=== PATIENT | female | born 1980 | race Caucasian/White ===

== ENCOUNTER 2020-09-23 12:42 | Outpatient (REF) | payer MEDICAID, SELFPAY ==
[2020-09-23 17:48] LABS: Glucose Urine UA NEG (NEG); Leukocyte Esterase Urine NEG (NEG); Nitrite Urine NEG (NEG); PH 5.5 (5.0-8.0); Specific Gravity - Urine 1.025 (1.005-1.025); Urine Blood 2+ (NEG); Urine Ketones NEG (NEG); Urine Protein NEG (NEG-TRACE)
[2020-09-23 17:50] LABS: Appearance Urine HAZY; Color Urine YELLOW
[2020-09-23 18:05] LABS: Bacteria Urine 1+ /LPF; Mucus Urine TRACE /LPF; Squamous Epithelial Cell Urine TRACE /LPF; WBC Urine 0 /HPF (0-4)
[2020-09-24 09:17] LABS: BV Int Neg Control Negative (Negative); BV Int Pos Control Positive (Positive)
[2020-09-27 20:21] LABS: HPV mRNA E6/E7 rflx Not Detected (Not Detected)
== END 2020-09-23 12:43 | disposition home or self-care (01) ==
LOC: HO.LAB 12:42
PROVIDERS: Visit Provider Advanced Practice Midwife
DX: Z01.419 Encounter for gynecological examination (general) (routine) without abnormal findings (principal); Z11.51 Encounter for screening for human papillomavirus (HPV); Z11.3 Encounter for screening for infections with a predominantly sexual mode of transmission; N92.6 Irregular menstruation, unspecified; R23.2 Flushing; N84.1 Polyp of cervix uteri; N93.9 Abnormal uterine and vaginal bleeding, unspecified
CPT/HCPCS: 81001; 81003; 87480; 87491; 87510; 87591; 87624; 87660; 88142

== ENCOUNTER 2020-09-28 12:38 | Outpatient (REF) | payer MEDICAID, SELFPAY ==
--- NOTE | ~2020-09-28 | US_ITS ---
EXAMINATION: PELVIC ULTRASOUND CLINICAL INFORMATION: Irregular menses COMPARISON: Previous CT of the abdomen and pelvis March 2015 TECHNIQUE: Transabdominal and transvaginal pelvic ultrasound was performed. Transvaginal exam was performed for better visualization of the uterus and ovaries. FINDINGS: The uterus is anteverted and measures 7.8 x 4.9 x 5.8 m in dimension. No focal uterine lesion is seen. Endometrial thickness is upper normal in size measuring 1.4 cm. No focal uterine lesion is seen. There is a small nabothian cyst in the cervix. The ovaries are normal-appearing. The right ovary measures 3 x 1.5 x 1.8 cm and the left ovary measures 3.6 x 1.6 x 3.6 cm. There is a small amount of fluid in the pelvis. US/US pelvic and transvaginal IMPRESSION: Upper normal thickness endometrium. Otherwise unremarkable exam.
[2020-09-28 13:53] LABS: Hematocrit 37.9 % (37-47); Hemoglobin 12.2 g/dl (12.0-16.0); Mean Corpuscular HGB Conc 32.2 g/dl (31.0-35.0); Mean Corpuscular Hemoglobin 28.7 pg (27.0-33.0); Mean Corpuscular Volume 89.2 fL (80-98); Mean Platelet Volume 9.5 fL (9.4-12.3); Platelet Count 318 X10*3/uL (160-400); Red Blood Count 4.25 X10*6/uL (4.20-5.50); Red Cell Distribution Width 12.8 % (11.0-16.0); White Blood Count 7.9 X10*3/uL (4.8-10.8)
[2020-09-28 14:24] LABS: Glucose Urine UA NEG (NEG); Leukocyte Esterase Urine NEG (NEG); Nitrite Urine NEG (NEG); PH 5.5 (5.0-8.0); Specific Gravity - Urine <= 1.005 (1.005-1.025); Urine Blood NEG (NEG); Urine Ketones NEG (NEG); Urine Protein NEG (NEG-TRACE)
[2020-09-28 14:25] LABS: Appearance Urine CLEAR; Color Urine YELLOW
[2020-09-28 14:40] LABS: Thyroid Stimulating Hormone 0.56 uIU/mL (0.32-4.0)
== END 2020-09-28 12:39 | disposition home or self-care (01) ==
LOC: HO.HMGCX 12:38
PROVIDERS: PCP Hospitalist; Visit Provider Advanced Practice Midwife
DX: N92.1 Excessive and frequent menstruation with irregular cycle (principal); N89.8 Other specified noninflammatory disorders of vagina; N93.9 Abnormal uterine and vaginal bleeding, unspecified
CPT/HCPCS: 36415; 76830; 76856; 81003; 84443; 85027

== ENCOUNTER 2020-09-30 09:52 | Outpatient (REF) | payer MEDICAID, SELFPAY | END 2020-09-30 09:53 | disposition home or self-care (01) | LOC: HO.LAB 09:52 | PROVIDERS: PCP Hospitalist; Referring Provider Hospitalist; Visit Provider Advanced Practice Midwife | DX: N84.1 Polyp of cervix uteri (principal); N93.9 Abnormal uterine and vaginal bleeding, unspecified | CPT/HCPCS: 58100; 58558; 88305 ==

== ENCOUNTER → 2020-10-13 15:00 | Outpatient (BNVA) | payer MEDICAID, SELFPAY | PROVIDERS: PCP Hospitalist; Visit Provider Advanced Practice Midwife ==

== ENCOUNTER 2021-02-23 09:39 | Outpatient (REF) | payer MEDICAID, SELFPAY ==
[2021-02-24 08:39] LABS: BV Int Neg Control Negative (Negative); BV Int Pos Control Positive (Positive)
[2021-02-26 13:41] LABS: HPV mRNA E6/E7 rflx Not Detected (Not Detected)
== END 2021-02-23 09:40 | disposition home or self-care (01) ==
LOC: HO.LAB 09:39
PROVIDERS: PCP Hospitalist; Visit Provider Advanced Practice Midwife
DX: R87.615 Unsatisfactory cytologic smear of cervix (principal); N93.9 Abnormal uterine and vaginal bleeding, unspecified; N89.8 Other specified noninflammatory disorders of vagina
CPT/HCPCS: 87480; 87510; 87624; 87660; 88142; 99212

== ENCOUNTER 2023-05-01 13:30 | Outpatient (AMB) | payer OTHER, SELFPAY ==
--- NOTE | 2023-05-01 13:50 | A.OFFVIS_ITS ---
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: Curator Of Collections Present (Adelia) Allergies azithromycin [From ZITHROMAX] Allergy (Intermediate, Verified 05/01/23 13:51) STOMACH PAIN, dizziness, abd pain amoxicillin Allergy (Unknown, Verified 05/01/23 13:51) dizziness, abd pain Sulfa (Sulfonamide Antibiotics) Allergy (Unknown, Verified 05/01/23 13:51) dizziness, abd pain sulfamethoxazole [From BACTRIM] Adverse Reaction (Intermediate, Verified 05/01/23 13:51) STOMACH PAIN trimethoprim [From BACTRIM] Adverse Reaction (Intermediate, Verified 05/01/23 13:51) STOMACH PAIN Is last menstrual period known: Yes Last menstrual period: 04/21/23 HPI HPI Comments History of Present Illness Details She is a premenopausal woman presenting for annual examination. Doing well with concerns: Having hot flashes at times, not interrupting sleep. Reports some mood changes. She tries to eat healthy and stays active with exercise. Regular monthly menses x4d. Currently is sexually active. History of vasectomy for partner. She denies vaginal itching and irritation. STI screening offered; she declined. Denies family history of breast, ovarian or colon cancer. Last pap smear 2020, negative. History of LEEP Pap due in 2023. Mammogram: Up-to-date. [facility] Medical History (Updated 05/01/23 @ 14:33 by Saritha Jain CNM) History of abnormal cervical Pap smear Surgical History H/O tooth extraction Hx of appendectomy History of colposcopy History of loop electrical excision procedure (LEEP) Hx of cone biopsy of cervix Hx of tonsillectomy Family History Maternal Grandmother Breast cancer Mother Cervical cancer Father No problems noted. Social History Alcohol intake: never Gender identity: Female Female Reproductive History Menstrual Age of Menarche: 11 Duration of menses: 3-5 days Date of last menstrual period: 04/21/23 control method: other (Vasectomy) Total pregnancies: 2 Full term: 2 Number of Living Children: 2 Date of last pap smear: 02/23/21 (neg pap and hpv) History of abnormal pap smear: Yes (hx hpv 10+yrs ago per pt) Date of Mammogram: 08/14/22 (Birad 1) Review of Systems Const All systems reviewed & are unremarkable except as noted in HPI and below Reports as per HPI Eyes Reports no additional complaints ENT Reports no additional complaints Card Reports no additional complaints Resp Reports no additional complaints GI Reports as per HPI and Reports no additional complaints Reports as per HPI Musc Reports no additional complaints Skin/Breast Reports as per HPI Neuro Reports no additional complaints Psych Reports no additional complaints Endo Reports no additional complaints Himanshu/Lymph Reports no additional complaints Aller/Immun Reports no additional complaints Physical Exam Vital Signs: Last Vital Signs BP 98/66 05/01/23 13:51 BMI result Body Mass Index 33.6 Const General: cooperative, healthy appearing, no acute distress, well developed and alert Orientation/consciousness: patient oriented x3 HEENT Head: Yes normal to inspection Eyes General: appearance normal, both eyes and all related structures Neck Neck: Yes normal visual inspection Thyroid: Thyroid normal Chest Chest palpation & inspection: normal inspection of the chest and other (no puckering, dimpling, peau de orange, retraction, discharge, masses) Breast/axilla inspection: normal inspection of the breasts Breast/axilla palpation: normal palpation of the breasts Resp Effort & Inspection: normal respiratory effort GI Inspection: Yes normal to inspection Palpation (GI): Soft to palpation Rectal Exam - Female: deferred General: Yes bladder normal to palpation External Female Exam: normal external appearance and normal appearance of the urethra Speculum Exam - Vagina: normal appearance of the vagina, normal palpation and normal vaginal discharge Speculum Exam - Cervix: normal appearance of the cervix and normal palpation Bimanual exam- vagina & uterus: normal bimanual exam, normal palpation, uterine size normal, bladder normal to palpation, normal palpation and non-tender Bimanual Exam- Adnexa, other: no masses Skin General skin exam: no rashes or lesions noted Rashes: no rashes Neuro General: patient oriented x3 Cognition (Neuro): normal cognition Extrem General: Yes normal to inspection Psych Attitude: cooperative Thought process: Normal thought process present Assessment & Plan Assessment & Plan (1) Encounter for well woman exam with routine gynecological exam: Code(s): Z01.419 - Encounter for gynecological examination (general) (routine) without abnormal findings (2) Polyp at cervical os: Code(s): N84.1 - Polyp of cervix uteri Plan Discussed: Current recommendations for pap smears per ASCCP guidelines. Breast awareness and periodic breast exams. Maintain a healthy lifestyle including a well balanced diet and routine exercise. Counseled re: perimenopause verses menopause changes. Monitor menstrual cycles, report any unscheduled bleeding, bleeding episodes <21 days apart or heavy/prolonged menstrual bleeding. Menopause occurs after a full 12 months of absent menses. If at risk for , use condoms, and if menses is late, take a home test. Call the office for further evaluation for any abnormal bleeding pattern occurs. Mammogram yearly. Patient requested external requisition to have this completed at [facility]. Colonoscopy >45, or at risk sooner. All of her questions and concerns were addressed to the best of my ability. RTO in one year for annual back padder examination. This note is constructed using voice recognition software. While every effort has been made to ensure accuracy, radiology scheduler errors may have been included. Orders: Orders MM tomosynthesis screening BI Today Z12.31 - Encounter for screening mammogram for malignant neoplasm of breast Coding Level of Care Code Est Pt Prev Care 40-64y(60706) Diagnoses Encounter for well woman exam with routine gynecological exam Z01.419 Polyp at cervical os N84.1
[2023-05-01 13:51] VITALS: BP 98/66; BMI 33.6
== END 2023-05-01 15:44 | disposition home or self-care (01) ==
PROVIDERS: PCP Hospitalist; Visit Provider Advanced Practice Midwife
DX: Z01.419 Encounter for gynecological examination (general) (routine) without abnormal findings (principal); N84.1 Polyp of cervix uteri
CPT/HCPCS: 99396

== ENCOUNTER → 2023-05-01 13:30 | Outpatient (BNVA) | payer OTHER, SELFPAY | PROVIDERS: PCP Hospitalist; Visit Provider Advanced Practice Midwife | DX: Z01.419 Encounter for gynecological examination (general) (routine) without abnormal findings (principal); N84.1 Polyp of cervix uteri | CPT/HCPCS: 99396 ==

== ENCOUNTER 2023-05-04 13:06 | Emergency (ER) | payer OTHER, SELFPAY ==
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
[2023-05-04 13:28] VITALS: BP 140/96; PULSE 81; O2SAT 99; BMI 33.5
[2023-05-04 13:32] VITALS: BP 137/89; PULSE 83; RESP 16; TEMP 36.8; O2SAT 99
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
--- NOTE | 2023-05-04 14:18 | PC.NURSE ---
pt c/o 5/10 pain at this time but does not want medication. c-collar remains in place. pt awaiting results from CT at this time. family bedside. respirations remain even/unlabored.
== END 2023-05-04 15:26 | disposition home or self-care (01) ==
PROVIDERS: Emergency Provider Emergency Medicine Emergency Medical Services; PCP Nurse Practitioner Family
DX: S13.4XXA Sprain of ligaments of cervical spine, initial encounter (principal); R51.9 Headache, unspecified; M54.2 Cervicalgia; V43.52XA Car driver injured in collision with other type car in traffic accident, initial encounter; Y93.9 Activity, unspecified; Y92.410 Unspecified street and highway as the place of occurrence of the external cause; Y99.9 Unspecified external cause status
CPT/HCPCS: 70450; 72125; 99284

== ENCOUNTER 2023-07-20 13:40 | Outpatient (REF) | payer MEDICAID, SELFPAY | END 2023-07-20 13:41 | disposition home or self-care (01) | LOC: HO.LNP 13:40 | PROVIDERS: PCP Nurse Practitioner Family; Visit Provider Advanced Practice Midwife | DX: N84.1 Polyp of cervix uteri (principal); Z32.02 Encounter for pregnancy test, result negative | CPT/HCPCS: 57500; 81025; 88305 ==

== ENCOUNTER 2023-07-20 13:40 | Outpatient (AMB) | payer MEDICAID, SELFPAY ==
--- NOTE | 2023-07-20 13:45 | A.OFFVIS_ITS ---
Intake Vital Signs 07/20/23 14:01 Height 5 ft 4 in Weight 194 lb 0.108 oz BMI 33.3 BP 108/62 Intake Visit Reasons: polypectomy [employer] Attendant Required: No Information Interpreted: non-clinical & clinical Rn Chemical Dependency: Rn Chemical Dependency Present (Jayne WADSWORTH) Accompanied by: Self / Same As Patient Allergies azithromycin [From ZITHROMAX] Allergy (Intermediate, Verified 07/20/23 14:02) STOMACH PAIN, dizziness, abd pain amoxicillin Allergy (Unknown, Verified 07/20/23 14:02) dizziness, abd pain Sulfa (Sulfonamide Antibiotics) Allergy (Unknown, Verified 07/20/23 14:02) dizziness, abd pain sulfamethoxazole [From BACTRIM] Adverse Reaction (Intermediate, Verified 07/20/23 14:02) STOMACH PAIN trimethoprim [From BACTRIM] Adverse Reaction (Intermediate, Verified 07/20/23 14:02) STOMACH PAIN Is last menstrual period known: Yes Last menstrual period: 07/07/23 PFSH Medical History History of abnormal cervical Pap smear Surgical History H/O tooth extraction Hx of appendectomy History of colposcopy History of loop electrical excision procedure (LEEP) Hx of cone biopsy of cervix Hx of tonsillectomy Family History Maternal Grandmother Breast cancer Mother Cervical cancer Father No problems noted. Social History Alcohol intake: never Gender identity: Female Female Reproductive History Menstrual Age of Menarche: 11 Date of last menstrual period: 07/07/23 Review of Systems Const All systems reviewed & are unremarkable except as noted in HPI and below Physical Exam Vital Signs: Last Vital Signs BP 108/62 07/20/23 14:01 BMI result Body Mass Index 33.3 Const General: cooperative, healthy appearing and no acute distress Orientation/consciousness: patient oriented x3 GI Inspection: Yes normal to inspection Palpation (GI): Soft to palpation and Other GI palpation findings present (Nontender) Rectal Exam - Female: visual inspection normal External Female Exam: normal appearance of the urethra Speculum Exam - Vagina: normal appearance of the vagina and normal vaginal disch arge Speculum Exam - Cervix: normal appearance of the cervix and Cervical mass present (Polyp lesion at 06:00 o'clock) Neuro General: patient oriented x3 Office Procedures Cervical Polypectomy Details Details: Consent for Cervical Polypectomy procedure: The patient is here today for an Cervical Polypectomy. She was counseled regarding anticipatory guidance for the procedure including the risks for pain, infection, bleeding, perforation, potential injury to the tissues may include the cervix, vagina, uterus, tubes, bladder and bowels. These injuries may include further treatment and evaluation including surgery, blood transfusions, antibiotics, hospitalizations and anesthesia. Permanent injury and scarring can occur. She was consented for the procedure, and the consent forms were signed. She is agreeable to have the procedure today. All questions were answered. Polypectomy Procedure: The patient was placed in the dorsal lithotomy position and a sterile speculum inserted. Using aseptic technique for the procedure. The cervix was cleansed with Betadine x 3 swabs. The polyp was grasped with a Manjit and removed. The tissue sample was placed in formalin in a patient labeled container by staff assisting and sent to the pathology department for processing and interpretation. Minimal bleeding was observed.The patient tolerate the procedure well and was in good condition when leaving the department. Post Polypectomy Care: There may be some bleeding for several days that is usually light and can turn to a light brown or pink in color. Mild cramping may occur. Nothing in the vagina including: tampons, douching or intimacy for a week. You may take an over the counter mild analgesia like Tylenol or Advil (if no allergies), per the manufacturers recommendations on dosing and frequency. Fol low the directions completely. Call the office if any: fever (over 100.4), flu like symptoms, abdominal pain, worsening cramping not resolved with over the counter medications, foul smelling vaginal odor, signs of infected appearing discharge, or heavy bleeding. A follow up for results on the pathology will be made. Please call the office if you have any concerns. This note is constructed using voice recognition software. While every effort has been made to ensure accuracy, hairpiece stylist errors may have been included. CPT: 28774 - Cervical Polypectomy All charges added?: Procedure code (CPT) selection complete Results AMB Test Urine AMB Test Urine Negative Last Edit by Jayne Cheung CMA on 03/08/ 24 14:21 Results Reviewed Results Reviewed: Laboratory Last Values Tst Clinic Negative 07/20/23 14:21 Assessment & Plan Assessment & Plan (1) Cervical polyp: Code(s): N84.1 - Polyp of cervix uteri Plan: See procedure notes. Plan to call patient with test results when available. Orders: Orders Surgical Today N84.1 - Polyp of cervix uteri AMB HCG Urine Test Today Z32.02 - Encounter for test, result negative Coding Level of Care Code Procedure Only Diagnoses Cervical polyp N84.1 CPT Codes Details - CPT: 11696 - Cervical Polypectomy ([id number])
[2023-07-20 14:01] VITALS: BP 108/62; BMI 33.3
== END 2023-07-20 15:58 | disposition home or self-care (01) ==
PROVIDERS: PCP Nurse Practitioner Family; Visit Provider Advanced Practice Midwife
DX: N84.1 Polyp of cervix uteri (principal); Z32.02 Encounter for pregnancy test, result negative
CPT/HCPCS: 57500

== ENCOUNTER 2024-05-28 13:48 | Outpatient (REF) | payer OTHER, SELFPAY ==
[2024-05-29 10:51] LABS: HPV 16,18/45 See PAP report
== END 2024-05-28 13:49 | disposition home or self-care (01) ==
LOC: HO.LNP 13:48
PROVIDERS: PCP Nurse Practitioner Family; Visit Provider Advanced Practice Midwife
DX: Z01.419 Encounter for gynecological examination (general) (routine) without abnormal findings (principal); Z11.51 Encounter for screening for human papillomavirus (HPV)
CPT/HCPCS: 87626; 88175; 99396; 99459

== ENCOUNTER 2024-05-28 13:48 | Outpatient (AMB) | payer OTHER, SELFPAY ==
--- NOTE | 2024-05-28 13:55 | A.OFFVIS_ITS ---
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 Metal Expediter: Metal Expediter Present (Adelia) Accompanied by: Self / Same As Patient Allergies azithromycin [From ZITHROMAX] Allergy (Intermediate, Verified 05/28/24 14:01) STOMACH PAIN, dizziness, abd pain amoxicillin Allergy (Unknown, Verified 05/28/24 14:01) dizziness, abd pain Sulfa (Sulfonamide Antibiotics) Allergy (Unknown, Verified 05/28/24 14:01) dizziness, abd pain sulfamethoxazole [From BACTRIM] Adverse Reaction (Intermediate, Verified 05/28/24 14:01) STOMACH PAIN trimethoprim [From BACTRIM] Adverse Reaction (Intermediate, Verified 05/28/24 14:01) STOMACH PAIN HPI Comments Details: She is a premenopausal woman presenting for annual examination. 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 CT scan at [facility] due to abd. pain. was negative. Regular monthly menses. Currently is sexually active, same partner for years, history of vasectomy. She denies vaginal itching and irritation. STI screening offered; she accepts. She has a GI workup pending. She tries to eat healthy and stays active with exercise-walks all day. Denies family history of breast, ovarian or colon cancer. Last pap smear 2020, negative. Mammogram: at [facility]-no copy on hand. [facility] Medical History History of abnormal cervical Pap smear Surgical History H/O tooth extraction Hx of appendectomy History of colposcopy History of loop electrical excision procedure (LEEP) Hx of cone biopsy of cervix Hx of tonsillectomy Family History Maternal Grandmother Breast cancer Mother Cervical cancer Father No problems noted. Social History Alcohol intake: never Gender identity: Female Female Reproductive History Menstrual Age of Menarche: 11 Duration of menses: 3-5 days Date of last menstrual period: 05/18/24 control method: other (vasectomy) Total pregnancies: 2 Full term: 2 Number of Living Children: 2 Date of last pap smear: 02/23/21 (negative pap, negative hpv) History of abnormal pap smear: Yes (hx hpv 10+yrs ago per pt) Date of Mammogram: 08/14/22 (bi rad 1) Review of Systems Const All systems reviewed & are unremarkable except as noted in HPI and below Reports as per HPI Eyes Reports no additional complaints ENT Reports no additional complaints Card Reports no additional complaints Resp Reports no additional complaints GI Reports as per HPI and Reports no additional complaints Reports as per HPI Musc Reports no additional complaints Skin/Breast Reports as per HPI Neuro Reports no additional complaints Psych Reports no additional complaints Endo Reports no additional complaints Himanshu/Lymph Reports no additional complaints Aller/Immun Reports no additional complaints Physical Exam Vital Signs: Last Vital Signs BP 110/70 05/28/24 14:03 BMI result Body Mass Index 32.8 Const General: cooperative, healthy appearing, no acute distress, well developed and alert Orientation/consciousness: patient oriented x3 HEENT Head: Yes normal to inspection Eyes General: appearance normal, both eyes and all related structures Neck Neck: Yes normal visual inspection Thyroid: Thyroid normal Chest Other: Large pendulous Chest palpation & inspection: normal inspection of the chest and other (no puckering, dimpling, peau de orange, retraction, discharge, masses) Breast/axilla inspection: normal inspection of the breasts Breast/axilla palpation: normal palpation of the breasts Resp Effort & Inspection: normal respiratory effort GI Inspection: Yes normal to inspection Palpation (GI): Soft to palpation Rectal Exam - Female: deferred General: Yes bladder normal to palpation External Female Exam: normal external appearance and normal appearance of the urethra Speculum Exam - Vagina: normal appearance of the vagina, normal palpation and normal vaginal discharge Speculum Exam - Cervix: normal appearance of the cervix, normal palpation and Other cervical findings present (Post LEEP appearance) Bimanual exam- vagina & uterus: normal bimanual exam, normal palpation, uterine size normal, bladder normal to palpation, normal palpation and non-tender Bimanual Exam- Adnexa, other: no masses Skin General skin exam: no rashes or lesions noted Rashes: no rashes Neuro General: patient oriented x3 Cognition (Neuro): normal cognition Extrem General: Yes normal to inspection Psych Attitude: cooperative Thought process: Normal thought process present Assessment & Plan Assessment & Plan (1) Encounter for well woman exam with routine gynecological exam: Code(s): Z01.419 - Encounter for gynecological examination (general) (routine) without abnormal findings Category: Medical (2) Pain in pelvis: Code(s): R10.2 - Pelvic and perineal pain Plan Discussed: Current recommendations for pap smears per ASCCP guidelines. Breast awareness and periodic breast exams. Mammogram yearly, send copies from [facility]. Pelvic ultrasound, GC chlamydia and BV panel obtained. Follow up pending results okay to plan a tele visit. Reviewed causes of pelvic pain and other rule out including GI origin, endometriosis, ovarian cyst, infections, other. Maintain a healthy lifestyle including a well balanced diet and routine exercise. Colonoscopy >45, or at risk sooner. Patient verbalizes understanding and agrees to the plan of care. She was given opportunity to ask questions and all questions were answered to the best of my ability. RTO in one year for annual senior sous chef examination. This note is constructed using voice recognition software. While every effort has been made to ensure accuracy, fashion photographer errors may have been included. Orders: Orders US pelvic and transvaginal Today R10.2 - Pelvic and perineal pain Coding Level of Care Code Est Pt Prev Care 40-64y(47802) Diagnoses Encounter for well woman exam with routine gynecological exam Z01.419 Pain in pelvis R10.2
[2024-05-28 14:03] VITALS: BP 110/70; BMI 32.8
== END 2024-05-28 15:00 | disposition home or self-care (01) ==
LOC: HO.HWS 13:48
PROVIDERS: PCP Nurse Practitioner Family; Visit Provider Advanced Practice Midwife
DX: Z01.419 Encounter for gynecological examination (general) (routine) without abnormal findings (principal); R10.2 Pelvic and perineal pain
CPT/HCPCS: 99396; 99459

== ENCOUNTER 2024-05-28 14:41 | Outpatient (REF) | payer OTHER, SELFPAY ==
[2024-05-28 21:31] LABS: Bacterial Vaginosis PCR NEGATIVE (Negative); Candida Group PCR NOT DETECTED (Not Detect); Candida glab krusei PCR NOT DETECTED (Not Detect); Trichomonas vaginalis PCR NOT DETECTED (Not Detect)
[2024-05-28 21:54] LABS: CT PCR NOT DETECTED (Not Detect.); NG PCR NOT DETECTED (Not Detect.)
== END 2024-05-28 14:42 | disposition home or self-care (01) ==
LOC: HO.LAB 14:41
PROVIDERS: Visit Provider Advanced Practice Midwife
DX: R10.2 Pelvic and perineal pain (principal); Z11.3 Encounter for screening for infections with a predominantly sexual mode of transmission
CPT/HCPCS: 81515; 87491; 87591

== ENCOUNTER 2024-06-05 15:13 | Outpatient (REF) | payer OTHER, SELFPAY ==
--- NOTE | ~2024-06-05 | US_ITS ---
EXAMINATION: US PELVIS TRANSABDOMINAL AND TRANSVAGINAL HISTORY: R10.2 - Pelvic and perineal pain COMPARISON: Comparison is made with the prior examination dated 09/28/2020. TECHNIQUE: Transabdominal and endovaginal real-time 2D cardona-scale ultrasound was performed. Color Doppler was also performed. FINDINGS: Uterus: The uterus is normal in size, measuring 8.2 x 4.0 x 4.8 cm. Myometrium has a normal echotexture. There is an anterior uterine fibroid measuring 1.4 x 1.0 x 1.0 cm. Endometrium: The endometrial stripe measures 4 mm in thickness. Right ovary: The right ovary measures 3.0 x 1.9 x 1.8 cm. The right ovary is normal in size and echotexture. Left ovary: The left ovary measures 2.3 x 1.5 x 1.6 cm. The left ovary is normal in size and echotexture. There is a 3.4 x 3.5 x 3.6 cm cyst adjacent to the left ovary, compatible with a paraovarian cyst. Color Doppler analysis of the bilateral ovarian arteries and veins are normal. Pelvic fluid: none. US/US pelvic and transvaginal IMPRESSION: 1. 1.4 x 1.0 x 1.0 cm anterior uterine fibroid. 2. 3.5 x 3.5 x 3.6 cm left paraovarian cyst. Follow-up is recommended. Electronically signed by: Victor M Beahc MD 06/06/2024 07:20 AM [facility]
== END 2024-06-05 15:14 | disposition home or self-care (01) ==
LOC: HO.US 15:13
PROVIDERS: PCP Nurse Practitioner Family; Visit Provider Advanced Practice Midwife
DX: R10.2 Pelvic and perineal pain (principal)
CPT/HCPCS: 76830; 76856

== ENCOUNTER → 2024-06-05 15:16 | Outpatient (BNV) | payer OTHER, SELFPAY | PROVIDERS: PCP Nurse Practitioner Family; Visit Provider Radiology Diagnostic Radiology | DX: D25.9 Leiomyoma of uterus, unspecified (principal) | CPT/HCPCS: 76830; 76856 ==

== ENCOUNTER → 2024-06-19 11:43 | Outpatient (AMB) | payer OTHER, SELFPAY ==
--- NOTE | 2024-06-19 11:43 | A.OFFVIS_ITS ---
Intake Visit Reasons: TV ultrasound results/TV ok Per Saritha Hat Sprayer: Hat Sprayer Present Allergies azithromycin [From ZITHROMAX] Allergy (Intermediate, Verified 05/28/24 14:01) STOMACH PAIN, dizziness, abd pain amoxicillin Allergy (Unknown, Verified 05/28/24 14:01) dizziness, abd pain Sulfa (Sulfonamide Antibiotics) Allergy (Unknown, Verified 05/28/24 14:01) dizziness, abd pain sulfamethoxazole [From BACTRIM] Adverse Reaction (Intermediate, Verified 05/28/24 14:01) STOMACH PAIN trimethoprim [From BACTRIM] Adverse Reaction (Intermediate, Verified 05/28/24 14:01) STOMACH PAIN Is last menstrual period known: Yes HPI Comments Details: Tele Health Visit Total time I personally spent on visit and management today: 23 minutes. Time spent included review of pertinent office notes in the electronic health record; review of laboratory and imaging results; review of personal family medical history; discussing diagnosis and plan of care with the patient; documenting the encounter in the EMR. Patient presents to discuss: Ultrasound findings, history of AUB, history of left-sided pelvic pain. She reports the pain onset is a week before her menstrual cycle occurring randomly perhaps over 3 days, pain is 10/10 for 10-15 minutes, not worsening, Tylenol does not resolve the pain. She reports she bled last month, episodes were spaced 2-1/2 weeks apart. History of partner with a vasectomy. She also has a GI workup pending for abdominal pain. Previous CT scan at [facility] she reports was negative, no copy on hand. [facility] Medical History (Updated 06/19/24 @ 12:41 by Saritha Jain CNM) Fibroid Left ovarian cyst History of abnormal cervical Pap smear Surgical History H/O tooth extraction Hx of appendectomy History of colposcopy History of loop electrical excision procedure (LEEP) Hx of cone biopsy of cervix Hx of tonsillectomy Family History Maternal Grandmother Breast cancer Mother Cervical cancer Father No problems noted. Social History Alcohol intake: never Gender identity: Female Female Reproductive History Menstrual Age of Menarche: 11 Review of Systems Const All systems reviewed & are unremarkable except as noted in HPI and below Endo Reports no additional complaints Physical Exam Const General: cooperative, healthy appearing and no acute distress Psych Appearance: well kempt Attitude: cooperative Thought process: Normal thought process present Telehealth Telehealth Telehealth Platform: Telephone Location of provider rendering services: practice address Location of patient: address on file Patient Identification confirmed using: Name, : Yes Telehealth method: video Patient verbally consented to treatment: Yes Patient verbally consented to billing insurance company: Yes Patient informed of any privacy concerns related to visit: Yes Results Reviewed Results Reviewed: [address] [address] Ultrasound Report Signed Patient: Hill Fernandez MR#: [id number] : 1980 Acct:[id number] Age/Sex: 44 / F ADM Date: 06/05/24 Loc: HO.US Attending Dr: Saritha Jain CNM Ordering Physician: Saritha Jain CNM Date of Service: 06/05/24 Procedure(s): US pelvic and transvaginal Accession Number(s): [id number] cc: Leatha Butler CHILD DEVELOPMENT ASSOCIATE TEACHER; Saritha Jain CNM~ EXAMINATION: US PELVIS TRANSABDOMINAL AND TRANSVAGINAL HISTORY: R10.2 - Pelvic and perineal pain COMPARISON: Comparison is made with the prior examination dated 09/28/2020. TECHNIQUE: Transabdominal and endovaginal real-time 2D cardona-scale ultrasound was performed. Color Doppler was also performed. FINDINGS: Uterus: The uterus is normal in size, measuring 8.2 x 4.0 x 4.8 cm. Myometrium has a normal echotexture. There is an anterior uterine fibroid measuring 1.4 x 1.0 x 1.0 cm. Endometrium: The endometrial stripe measures 4 mm in thickness. Right ovary: The right ovary measures 3.0 x 1.9 x 1.8 cm. The right ovary is normal in size and echotexture. Left ovary: The left ovary measures 2.3 x 1.5 x 1.6 cm. The left ovary is normal in size and echotexture. There is a 3.4 x 3.5 x 3.6 cm cyst adjacent to the left ovary, compatible with a paraovarian cyst. Color Doppler analysis of the bilateral ovarian arteries and veins are normal. Pelvic fluid: none. US/US pelvic and transvaginal IMPRESSION: 1. 1.4 x 1.0 x 1.0 cm anterior uterine fibroid. 2. 3.5 x 3.5 x 3.6 cm left paraovarian cyst. Follow-up is recommended. Electronically signed by: Victor M Beach MD 06/06/2024 07:20 AM EST Dictated By: Victor M Beach MD Signed By: <Electronically signed by Victor M Beach MD in OV> 06/06/24 0720 DD/ 1536 TD/TT: 06/05/24 1547 Aquatic Centre Manager: Assessment & Plan Assessment & Plan (1) Left ovarian cyst: Code(s): N83.202 - Unspecified ovarian cyst, left side Category: Medical Plan: Discussed: Ultrasound findings reveal a para ovarian cyst, left side measuring 3.6 cm. Due to ongoing discomfort advised to repeat ultrasound in 6-8 weeks or sooner if needed for any changes. Ovarian cyst information reviewed. GC chlamydia and BV panel were all negative on her last exam. (2) Abnormal uterine bleeding: Code(s): N93.9 - Abnormal uterine and vaginal bleeding, unspecified Category: Medical Plan: Monitor bleeding call if it is worsening prolonged or heavy episodes. (3) Encounter to discuss test results: Code(s): Z71.2 - Person consulting for explanation of examination or test findings (4) Fibroid: Code(s): D21.9 - Benign neoplasm of connective and other soft tissue, unspecified Category: Medical Plan: Discussed: Fibroids-plan follow up ultrasound for stability. Plan Discussed ultrasound finding is noted. New findings of fibroid. Follow up ultrasound recommended. Reviewed comfort measures suggested trying ibuprofen, 200 mg, 3 tablets with food and fluids p.r.n. for discomfort. If pain is worsening call the office for evaluation, if severe go to the nearest emergency room for immediate evaluation. The patient expressed understanding and agreement with the plan of care. All of her questions and concerns were addressed to the best of my ability. This note is constructed using voice recognition software. While every effort has been made to ensure accuracy, substitute nurse errors may have been included. Orders: Orders US pelvic and transvaginal 07/21/24 N83.202 - Unspecified ovarian cyst, left side Coding Level of Care Code Tele Est Pt Level 3 (70337) Diagnoses Left ovarian cyst N83.202 Abnormal uterine bleeding N93.9 Encounter to discuss test results Z71.2 Fibroid D21.9
--- OUTSIDE RECORDS SUMMARY | 2024-06-19 11:48 | XMS_ITS | Data Portability ---
Author Organization [facility] Pain Managem ent, PAIN OFFICE Address [address] [place] [address],[address] [address] Care Team Providers Care Rough Rib Grader Name Role Phone BOOGIELASHELL Primary Care Provider [phone] REHAN FITZGERALD Referring Provider Assessment Encounter Date Assessment Date Assessment LastModified by Organization Details LastModified Time 09/23/2015 09/23/2015 Hill Fernandez is a 35 year old woman with complaints of right lower quadrant abdominal pain which started after appendectomy. On exam, she has tenderness in the region of the scar and also in the ilioinguinal region. CT scan of the abdomen post surgery shows Status post appendectomy changes. otherwise unremarkable. She has features of nerve entrapment. I recommend a scar infiltration under ultrasound guidance. The risks and benefits of the procedure? ? ? were discussed in detail. She does not wish to have any injections at present. She will call for an appointment ? ? ?after seeing the gastroenterology. [email or web address] Not available 09/28/2015 11:11:30 11/02/2015 11/02/2015 Hill Fernandez is a 35 year old woman with complaints of right lower quadrant abdominal pain which started after appendectomy. On exam, she has tenderness in the region of the scar and also in the ilioinguinal region. CT scan of the abdomen post surgery shows Status post appendectomy changes. otherwise unremarkable. She has features of nerve entrapment.? ? ?She is here for? ? ?a scar infiltration under ultrasound guidance. The risks and benefits of the procedure? ? ? were discussed in detail. She wishes to proceed . She will follow up in two to three weeks to assess the benefits. [email or web address] Not available 11/03/2015 09:08:46 12/08/2015 12/08/2015 Hill Fernandez is a 35 year old woman with complaints of right lower quadrant abdominal pain which started after appendectomy. On exam, she has tenderness in the region of the scar and also in the ilioinguinal region. CT scan of the abdomen post surgery shows Status post appendectomy changes. otherwise unremarkable. She has features of nerve entrapment.? ? ?She is here for? ? ?a follow up after a scar infiltration under ultrasound guidance. She reports no pain benefit.I have advised her to follow up with her surgeon and her disbursing agent . I have also encouraged her to do core strengthening exercises and to avoid lifting things above 20 pounds. [email or web address] Not available 12/19/2015 08:49:15 Plan of Treatment Reminders Order Date Submit Date Provider Last Modified By Organization Details Last Modified Time Details Appointments None record ed. Lab None record ed. Referral None record ed. Procedures None record ed. Surgeries None record ed. Imaging None record ed. Medication Orders None record ed. Patient TargetsNo targets recorded. Patient Instructions Encounter Date Encounter Id Patient Instructions Last Modified By Organization Details Last Modified Time 09/23/2015 [id number] She was advised against bed rest lasting longer than four days and to continue activities as tolerated. [email or web address] Not available 09/26/2015 07:44:01 11/02/2015 [id number] She was advised against bed rest lasting longer than four days and to continue activities as tolerated. [email or web address] Not available 11/03/2015 09:04:21 12/08/2015 [id number] She was advised against bed rest lasting longer than four days and to continue activities as tolerated. [email or web address] Not available 12/19/2015 08:46:27 Reason for Referral None Reported. Problems Name Problem SNOMED Code Status Onset Date Resolution Date Notes Provider Name and Address Organization Details Recorded Time Peripheral nerve entrapment syndrome [id number] Clare dhaliwal MD [address] , [address], [place], [address], [place] [facility] 6 08:49:15 Abdominal wall pain [id number] Clare dhaliwal MD [address] , [address], [facility] [place], [address], [place] [facility] 6 08:49:15 Problem Notes None recorded. Procedures Surgical History Date Name Laterality Status Provider Name and Address Organization Details Recorded Time 11/02/19 16 Trigger Point Injections under ultrasound guidance completed Isa Dubose MD [address] , [address], [place], [address], [facility] 11/03/2015 09:08:47 05/14/19 06 Other completed Bryanna Hunter [place] [facility] 09/27/2015 10:58:57 Appendectomy completed Bryanna Hunter [place] [facility] 09/27/2015 10:58:57 Tonsillectomy completed Bryanna Hunter [place] [facility] 09/23/2015 11:01:30 Colonoscopy completed Bryanna Hunter [place] [facility] 09/23/2015 11:01:30 Other completed Bryanna Hunter [place] [facility] 09/27/2015 10:58:57 Imaging Results None recorded. Procedure Notes None recorded. Medical Equipment None Reported. Allergies Allergen ID Allergen Name Allergen Category Reaction Reaction Severity Criticality Documentation Date Start Date Code Code System Note Provider Name and Address Organization Details Recorded Time 45270 amoxicill in medicatio n Not available Not available Not available 09/23/2015 723 RxNorm GI distr ess Bryanna moya, [place] [facility] 6 11:01:30 33351 Bactrim medicatio n Not available Not available Not available 09/23/2015 43293 9 RxNorm GI distr ess Bryanna moya, [facility] 6 11:01:30 69322 azithromy zelalem medicatio n nausea Not available Not available 12/08/2015 47015 RxNorm Abdom inal pain Bryanna moya, [facility] 6 15:27:31 Medications Name Sig Start Date Stop Date Status Note LastModified by Organization Details LastModified Time ibuprofen 800 mg tablet active Not Available Not Available No t Available ciprofloxacin 500 mg tablet active Not Available Not Availabl e Not Available ranitidine 150 mg tablet active Not Available Not Available No t Available omeprazole 20 mg capsule,delayed release Take 1 capsule every day by oral route. active Not Available Not Available No t Available levofloxacin 500 mg tablet active Not Available Not Availabl e Not Available cholecalciferol (vitamin D3) 25 mcg (1,000 unit) capsule active Not Available Not Availabl e Not Available Probiotic daily active Not Available Not Jocelyne ilable Not Available Vitals Date Recorded Heart rate Body height Oxygen saturation Oxygen saturation in Arterial blood by Pulse oximetry Body mass index (BMI) Body weight Systolic blood pressure Diastolic blood pressure Provider Name and Address Organization Details Last Updated DateTime 6 76 /min 162.56 cm 99 % 99 % 36.7 kg/m2 09186.7 6718 g 118 mm[Hg] 77 mm[Hg] [facility] 11:01:30 Date Recorded Oxygen saturation Oxygen saturation in Arterial blood by Pulse oximetry Heart rate Systolic blood pressure Diastolic blood pressure Provider Name and Address Organization Details Last Updated DateTime 6 98 % 98 % 87 /min 139 mm[Hg] 88 mm[Hg] [facility] 6 15:11:54 Date Recorded Heart rate Oxygen saturation Oxygen saturation in Arterial blood by Pulse oximetry Systolic blood pressure Diastolic blood pressure Provider Name and Address Organization Details Last Updated DateTime 6 78 /min 98 % 98 % 127 mm[Hg] 79 mm[Hg] [facility] 6 15:27:31 Social History Question Answer Notes LastModified by Organizat ion Details LastModified Time Tobacco Smoking Status Never Smoker Not [facility] 02/27/2020 03:16:10 What Is Your Level Of Alcohol Consumption? None [id number] Information not available 02/27/2020 Are You Currently Employed? No [id number] Information not available 02/27/2020 Which Illicit Or Recreational Drugs Have You Used? No [id number] Information not available 02/27/2020 Education 10 Information no t available 09/23/2015 Live Alone Or With Others? With Others , Son , Daughter And Father Information not available 09/23/2015 Marital Status Informatio n not available 09/23/2015 Sex: Unknown Functional Status None recorded. Mental Status None recorded. Family History Relationship Description Onset Age of this Age Resolved Age Notes LastModified by Organization Details LastModified Time Father Problem Arthri tis [email or web address] Not available 12/19/2015 08:45:37 Medical History Condition Response Headache Y Arthritis Y GERD/Reflux Y Gynecological HistoryNo gynecological history recorded. Obstetrics History GPAL:G 0 P 0 0 0 0 Past Encounters Encounter ID Performer Location Encounter Start Date Encounter Closed Date Diagnosis/Indication Diagnosis SNOMED-CT Code Diagnosis ICD10 Code Diagnosis Note [id number] Isa Dubose MD PAIN OFFICE [address] [place] [address] 09/23/2015 10:05:00 09/26/2015 07:44:25 Peripheral nerve entrapment syndrome 12752751 G58.8 Abdominal wall pain 1620 15847 R10.31 [id number] Isa Dubose MD PAIN OFFICE [address] [place] [address] 11/02/2015 14:44:56 11/03/2015 09:10:13 Peripheral nerve entrapment syndrome 43338190 G58.8 Abdominal wall pain 1620 17338 R10.31 [id number] Isa Dubose MD PAIN OFFICE [address] [place] [address] 12/08/2015 15:02:23 12/19/2015 08:49:49 Peripheral nerve entrapment syndrome 40908303 G58.8 Abdominal wall pain 1620 38249 R10.31 Health Concerns Section Related Observation LastModified by Organization Detai ls LastModified Time None Recorded Concern Status LastModified by Organization Details LastModified Time None Recorded Advance Directives Directive None Recorded Payers Encounter Date Sequence Insurance Name Policy Number Policy Arriaza Covered Member ID Arriaza Member ID Guarantor Name 09/23/2015 1 [facility] [employer] ([facility] [id number] [facility] [id number] [facility] 09/23/2015 2 [place] [facility] [id number] [facility] 11/02/2015 1 [facility] [employer] ([facility] [id number] [facility] [id number] [facility] 11/02/2015 2 [place] [facility] [id number] [facility] 12/08/2015 1 [facility] [employer] ([facility] [id number] [facility] [id number] [facility] 12/08/2015 2 [place] [facility] Hill Fernandez [id number] Hill Fernandez Notes Date Note Type Note Provider Name and Address Organization Details Recorded Time 09/23/2015 text/html Hill Fernandez is a 35 year old woman with complaints of pain in the right lower quadrant of the abdomen . The pain started after appendectomy in April 09 2015. She describes the pain as being around the scar site and is burning, shooting pain which is at times pinching and cramping in sensation. Current pain level is high. Nothing relieves the pain. Pain is aggravated by movement. Pain occasionally interferes with sleep. She has trialed motrin for pain . She is unsure of pain benefit. CT abdomen and pelvis post surgery shows no evidence of retained foreign body. Status post appendectomy. Otherwise unremarkable. She has an upcoming appointment with gastroenterology. Isa Dubose MD [address] [facility] , [address] [facility], [place], [address], [employer] [facility] 09/29/2015 15:45:26 11/02/2015 text/html She is here for a trial of scar infiltration under ultrasound guidance. She states she has seen a gastro enterologist at [place] and is waiting for investigations. Isa Dubose MD [address] [facility] , [address], [place], [address], [employer] [facility] 11/05/2015 11:30:07 12/08/2015 text/html She is here for a follow up after a trial of scar infiltration under ultrasound guidance. She reports no pain benefit. She states she has seen a gastro enterologist at [place] and is waiting for investigations. Isa Dubose MD [address] [facility] , [address], [place], [address], [employer] [facility] 12/20/2015 15:40:08 OBGyn Episode No OBEpisode recorded.
== END | disposition home or self-care (01) ==
PROVIDERS: PCP Nurse Practitioner Family; Visit Provider Advanced Practice Midwife
CPT/HCPCS: 99213

== ENCOUNTER 2024-09-01 12:37 | Outpatient (REF) | payer OTHER, SELFPAY ==
--- NOTE | ~2024-09-01 | US_ITS ---
CLINICAL HISTORY: N83.202 - Unspecified ovarian cyst, left side --- Additional Notes or Special Instr uctions: Follow up left ovarian cyst 6-8 weeks Transabdominal and transvaginal pelvic ultrasound Comparison: 06/05/2024 Findings: Uterus 7.5 x 4.6 x 5.9 cm. Endometrium 1.7 cm. No fibroids noted on current study. No significant free fluid. Right ovary 2.1 x 2.5 x 1.3 cm. No significant focal abnormality. Left ovary 2.4 x 2.7 x 1.7 cm. 4.3 x 4.8 cm simple cyst. This is enlarged since prior study. Impression: Enlarging simple cyst left ovary This document has been electronically signed by: Valente Gasca MD on 09/02/2024 20:25:02
--- OUTSIDE RECORDS SUMMARY | 2024-09-01 12:39 | XMS_ITS | Data Portability ---
Author Organization [facility] Pain Managem ent, PAIN OFFICE Address [address] [place] [address],[address] [address] Care Team Providers Care Hat Parts Cutter Machine Name Role Phone BOOGIELASHELL Primary Care Provider REHAN FITZGERALD Referring Provider Assessment Encounter Date [...] follow up with her surgeon and her cloth hauler . I have also encouraged her to [...] By Organization Details Last Modified Time 09/23/2015 [id number] She was advised against bed rest lasting longer than four days and to continue activities as tolerated. [email or web address] Not available 09/26/2015 07:44:01 11/02/2015 [id number] She was advised against bed rest lasting longer than four days and to continue activities as tolerated. [email or web address] Not available 11/03/2015 09:04:21 12/08/2015 [id number] She was advised against bed rest lasting longer than four days and to continue activities as tolerated. [email or web address] Not available 12/19/2015 08:46:27 Reason for Referral None Reported. Problems Name Problem SNOMED Code Status Onset Date Resolution Date Notes Provider Name and Address Organization Details Recorded Time Peripheral nerve entrapment syndrome [id number] Clare dhaliwal MD [address] , [address], [facility] [place], [address], [place] [facility] 6 08:49:15 Abdominal wall pain [id number] Clare dhaliwal MD [address] , [address], [facility] [place], [address], [place] [facility] 6 08:49:15 Problem Notes None recorded. Procedures Surgical History Date Name Laterality Status Provider Name and Address Organization Details Recorded Time 11/02/19 16 Trigger Point Injections under ultrasound guidance completed Isa Dubose MD [address] , [address], [place], [address], [facility] 11/03/2015 09:08:47 [...] Name and Address Organization Details Recorded Time 20004 amoxicill in medicatio n Not available Not available Not available 09/23/2015 723 RxNorm GI distr ess Bryanna moya, [place] 6 11:01:30 06115 Bactrim medicatio n Not available Not available Not available 09/23/2015 59909 9 RxNorm GI distr ess Bryanna moya, [facility] 6 11:01:30 14437 azithromy zelalem medicatio n nausea Not available Not available 12/08/2015 25648 RxNorm Abdom inal pain Bryanna moya, CHARLIE [...] cm 99 % 99 % 36.7 kg/m2 17881.7 6718 g 118 mm[Hg] 77 mm[Hg] [facility] 6 11:01:30 Date Recorded Oxygen saturation Oxygen saturation in Arterial blood by Pulse oximetry Heart rate Systolic blood pressure Diastolic blood pressure Provider Name and Address Organization Details Last Updated DateTime 6 98 % 98 % 87 /min 139 mm[Hg] 88 mm[Hg] [facility] 6 15:11:54 Date Recorded Heart rate Oxygen saturation Oxygen saturation in Arterial blood by Pulse oximetry Systolic blood pressure Diastolic blood pressure Provider Name and Address Organization Details Last Updated DateTime 6 78 /min 98 % 98 % 127 mm[Hg] 79 mm[Hg] [facility] 6 15:27:31 Social History Question Answer Notes LastModified by Organizat ion Details LastModified Time Tobacco Smoking Status Never Smoker Not Available [facility] 02/27/2020 03:16:10 What Is Your Level Of Alcohol Consumption? None [id number] Information not available 02/27/2020 Are You Currently Employed? No [id number] Information not available 02/27/2020 Which Illicit Or Recreational Drugs Have You Used? No [id number] Information not available 02/27/2020 Education 10 Information [...] SNOMED-CT Code Diagnosis ICD10 Code Diagnosis Note [id number] Isa Dubose MD PAIN OFFICE [address] [place] [address] 09/23/2015 10:05:00 09/26/2015 07:44:25 Peripheral nerve entrapment syndrome 66785199 G58.8 Abdominal wall pain 1620 64418 R10.31 [id number] Isa Dubose MD PAIN OFFICE [address] [place] [address] 11/02/2015 14:44:56 11/03/2015 09:10:13 Peripheral nerve entrapment syndrome 83113494 G58.8 Abdominal wall pain 1620 88519 R10.31 [id number] Isa Dubose MD PAIN OFFICE [address] [place] [address] 12/08/2015 15:02:23 12/19/2015 08:49:49 Peripheral nerve entrapment syndrome 32618018 G58.8 Abdominal wall pain 1620 42502 R10.31 Health Concerns Section Related Observation LastModified by Organization Detai ls LastModified Time None Recorded Concern Status LastModified by Organization Details LastModified Time None Recorded Advance Directives Directive None Recorded Payers Encounter Date Sequence Insurance Name Policy Number Policy Arriaza Covered Member ID Arriaza Member ID Guarantor Name 09/23/2015 1 [facility] [employer] ([facility] [place] [id number] [facility] [id number] [facility] 09/23/2015 2 [place] [facility] [id number] [facility] 11/02/2015 1 [facility] [employer] ([facility] [place] [id number] [facility] [id number] [facility] 11/02/2015 2 [place] [facility] [id number] [facility] 12/08/2015 1 [facility] [employer] ([facility] [place] [id number] [facility] [id number] [facility] 12/08/2015 2 [place] [facility] Hill Fernandez [id number] Hill Fernandez Notes Date Note Type Note [...] appointment with gastroenterology. Isa Dubose MD [address] [facility] , [address] [facility], [place], [address], [employer] [facility] 09/29/2015 15:45:26 11/02/2015 text/html She is here for a trial of scar infiltration under ultrasound guidance. She states she has seen a gastro enterologist at [place] and is waiting for investigations. Isa Dubose MD [address] [facility] , [address], [place], [address], [employer] [facility] 11/05/2015 11:30:07 12/08/2015 text/html She is here for a follow up after a trial of scar infiltration under ultrasound guidance. She reports no pain benefit. She states she has seen a gastro enterologist at [place] and is waiting for investigations. Isa Dubose MD [address] [facility] , [address], [place], [address], [employer] [facility] 12/20/2015 15:40:08 OBGyn Episode No OBEpisode recorded.
== END 2024-09-01 12:38 | disposition home or self-care (01) ==
LOC: HO.US 12:37
PROVIDERS: PCP Nurse Practitioner Family; Visit Provider Advanced Practice Midwife
DX: N83.202 Unspecified ovarian cyst, left side (principal)
CPT/HCPCS: 76830; 76856

== ENCOUNTER → 2024-09-01 12:38 | Outpatient (BNV) | payer OTHER, SELFPAY | PROVIDERS: PCP Nurse Practitioner Family; Visit Provider Radiology Diagnostic Radiology | DX: N83.202 Unspecified ovarian cyst, left side (principal) | CPT/HCPCS: 76830; 76856 ==

== ENCOUNTER 2024-09-03 11:10 | Outpatient (AMB) | payer OTHER, SELFPAY ==
--- NOTE | 2024-09-03 11:10 | A.OFFVIS_ITS ---
Intake Visit Reasons: Tv US follow up Intake Note: cell # [phone] Laborer Yard: Laborer Yard Present Allergies azithromycin [From ZITHROMAX] Allergy (Intermediate, Verified 09/03/24 11:10) STOMACH PAIN, dizziness, abd pain amoxicillin Allergy (Unknown, Verified 09/03/24 11:10) dizziness, abd pain Sulfa (Sulfonamide Antibiotics) Allergy (Unknown, Verified 09/03/24 11:10) dizziness, abd pain sulfamethoxazole [From BACTRIM] Adverse Reaction (Intermediate, Verified 09/03/24 11:10) STOMACH PAIN trimethoprim [From BACTRIM] Adverse Reaction (Intermediate, Verified 09/03/24 11:10) STOMACH PAIN Is last menstrual period known: Yes Last menstrual period: 08/16/24 HPI Comments Details: Tele Health Visit Total time I personally spent on visit and management today: 16 minutes. Time spent included review of pertinent office notes in the electronic health record; review of laboratory and imaging results; review of personal family medical history; discussing diagnosis and plan of care with the patient; documenting the encounter in the EMR. Patient presents to discuss: Ultrasound findings, history of left ovarian cyst. Having some intermittent discomfort on her left side. [facility] Medical History (Updated 09/03/24 @ 11:39 by Saritha Jain CNM) Fibroid Left ovarian cyst History of abnormal cervical Pap smear Surgical History H/O tooth extraction Hx of appendectomy History of colposcopy History of loop electrical excision procedure (LEEP) Hx of cone biopsy of cervix Hx of tonsillectomy Family History Maternal Grandmother Breast cancer Mother Cervical cancer Father No problems noted. Social History Alcohol intake: never Gender identity: Female Female Reproductive History Menstrual Age of Menarche: 11 Date of last menstrual period: 08/16/24 Review of Systems Const All systems reviewed & are unremarkable except as noted in HPI and below Endo Reports no additional complaints Physical Exam Const General: cooperative, healthy appearing and no acute distress Psych Appearance: well kempt Attitude: cooperative Thought process: Normal thought process present Telehealth Telehealth Telehealth Platform: [facility] Location of provider rendering services: practice address Location of patient: other Patient Identification confirmed using: Name, : Yes Telehealth method: video Patient verbally consented to treatment: Yes Patient verbally consented to billing insurance company: Yes Patient informed of any privacy concerns related to visit: Yes Results Reviewed Results Reviewed: [address] [address] Ultrasound Report Signed Patient: Hill Fernandez MR#: [id number] : 1980 Acct:[id number] Age/Sex: 44 / F ADM Date: 09/01/24 Loc: HO.US Attending Dr: Saritha Jain CNM Ordering Physician: Saritha Jain CNM Date of Service: 09/01/24 Procedure(s): US pelvic and transvaginal Accession Number(s): [id number] cc: Leatha Butler BAIT MAKER; Saritha Jain CNM~ CLINICAL HISTORY: N83.202 - Unspecified ovarian cyst, left side --- Additional Notes or Special Instructions: Follow up left ovarian cyst 6-8 weeks Transabdominal and transvaginal pelvic ultrasound Comparison: 06/05/2024 Findings: Uterus 7.5 x 4.6 x 5.9 cm. Endometrium 1.7 cm. No fibroids noted on current study. No significant free fluid. Right ovary 2.1 x 2.5 x 1.3 cm. No significant focal abnormality. Left ovary 2.4 x 2.7 x 1.7 cm. 4.3 x 4.8 cm simple cyst. This is enlarged since prior study. Impression: Enlarging simple cyst left ovary This document has been electronically signed by: Valente Gasca MD on 09/02/2024 20:25:02 Dictated By: Valente Gasca MD Signed By: <Electronically signed by Valente Gasca MD in OV> 09/02/242025 DD/ 24 TD/TT: 09/02/242024 Shank Tapper: Assessment & Plan Assessment & Plan (1) Left ovarian cyst: Comment: 4.8cm 09/01/24 Code(s): N83.202 - Unspecified ovarian cyst, left side Category: Medical Plan Discussed ultrasound findings: Impression: Enlarging simple cyst left ovary 4.8cm, was 3.6cm 06/05/24. Reviewed comfort measures, warnings for ovarian torsion and when to seek immediate care in the emergency room for any severe pain, persistent increasing pain. Cyst is a benign in nature most often will resolve on its own spontaneously. Plan to observe advised to call if there is any concerns sooner than her follow up appointment in 3 months. Repeat scan ordered and follow up planned. The patient expressed understanding and agreement with the plan of care. All of her questions and concerns were addressed to the best of my ability. This note is constructed using voice recognition software. While every effort has been made to ensure accuracy, director of spa and guest experience errors may have been included. Orders: Orders US pelvic and transvaginal 11/17/24 N83.202 - Unspecified ovarian cyst, left side Coding Level of Care Code Tele Est Pt Level 3 (77414) Diagnoses Left ovarian cyst N83.202
--- OUTSIDE RECORDS SUMMARY | 2024-09-03 13:29 | XMS_ITS | Data Portability ---
Author Organization [facility], PAIN OFFICE Address [address] [place] [address],[address] [address] Care Team Providers Care Survey Analyst Name Role Phone BOOGIELASHELL Primary Care Provider REHAN FITZGERALD Referring Provider [phone] Assessment Encounter Date Assessment Date Assessment LastModified [...] appointment ? ? ?after seeing the gastroenterology. [email or web address] Not available 09/28/2015 11:11:30 11/02/2015 11/02/2015 Hill [...] follow up with her surgeon and her quality assurance tech . I have also encouraged her to [...] By Organization Details Last Modified Time 09/23/2015 13410 She was advised against bed rest lasting longer than four days and to continue activities as tolerated. [email or web address] Not available 09/26/2015 07:44:01 11/02/2015 80854 She was advised against bed rest lasting longer than four days and to continue activities as tolerated. [email or web address] Not available 11/03/2015 09:04:21 12/08/2015 13621 She was advised against bed rest lasting longer than four days and to continue activities as tolerated. [email or web address] Not available 12/19/2015 08:46:27 Reason for Referral None Reported. Problems Name Problem SNOMED Code Status Onset Date Resolution Date Notes Provider Name and Address Organization Details Recorded Time Peripheral nerve entrapment syndrome 11237935 Clare dhaliwal MD [address] , [address], [place], [address], [place] [facility] 6 08:49:15 Abdominal wall pain [id number] Clare dhaliwal MD [address] , [address], [facility] [place], [address], [place] [facility] 6 08:49:15 Problem Notes None recorded. Procedures Surgical History Date Name Laterality Status Provider Name and Address Organization Details Recorded Time 11/02/19 16 Trigger Point Injections under ultrasound guidance completed Isa Dubose MD [address] [facility] [facility] , [address], [place], [address], [facility] 11/03/2015 09:08:47 [...] Name and Address Organization Details Recorded Time 40268 amoxicill in medicatio n Not available Not available Not available 09/23/2015 723 [facility] Bryanna moya, [facility] 6 11:01:30 85805 Bactrim medicatio n Not available Not available Not available 09/23/2015 57190 9 [facility] distr ess Bryanna moya, [facility] 6 11:01:30 99142 azithromy zelalem medicatio n nausea Not available Not available 12/08/2015 52819 RxNorm Abdom inal pain Bryanna moya, CHARLIE [...] cm 99 % 99 % 36.7 kg/m2 00704.7 6718 g 118 mm[Hg] 77 mm[Hg] [facility] 6 11:01:30 Date Recorded Oxygen saturation Oxygen saturation in Arterial blood by Pulse oximetry Heart rate Systolic blood pressure Diastolic blood pressure Provider Name and Address Organization Details Last Updated DateTime 6 98 % 98 % 87 /min 139 mm[Hg] 88 mm[Hg] [facility] 6 15:11:54 Date Recorded Heart rate Oxygen saturation Oxygen saturation in Arterial blood by Pulse oximetry Systolic blood pressure Diastolic blood pressure Provider Name and Address Organization Details Last Updated DateTime 6 78 /min 98 % 98 % 127 mm[Hg] 79 mm[Hg] [facility] 6 15:27:31 Social History Question Answer Notes LastModified by Organizat ion Details LastModified Time Tobacco Smoking Status Never Smoker Not Available [facility] 02/27/2020 03:16:10 What Is Your Level Of Alcohol Consumption? None [id number] Information not available 02/27/2020 Are You Currently Employed? No [id number] Information not available 02/27/2020 Which Illicit Or Recreational Drugs Have You Used? No [id number] Information not available 02/27/2020 Education 10 Information [...] available 12/19/2015 08:45:37 Medical History Condition Response Arthritis Y Headache Y GERD/Reflux Y Gynecological HistoryNo gynecological history recorded. Obstetrics History GPAL:G 0 P 0 0 0 0 Past Encounters Encounter ID Performer Location Encounter Start Date Encounter Closed Date Diagnosis/Indication Diagnosis SNOMED-CT Code Diagnosis ICD10 Code Diagnosis Note [id number] Isa Dubose MD PAIN OFFICE [address] [place] [address] 09/23/2015 10:05:00 09/26/2015 07:44:25 Peripheral nerve entrapment syndrome 37597543 G58.8 Abdominal wall pain 1620 61289 R10.31 [id number] Isa Dubose MD PAIN OFFICE [address] [place] [address] 11/02/2015 14:44:56 11/03/2015 09:10:13 Peripheral nerve entrapment syndrome 34749617 G58.8 Abdominal wall pain 1620 83470 R10.31 [id number] Isa Dubose MD PAIN OFFICE [address] [place] [address] 12/08/2015 15:02:23 12/19/2015 08:49:49 Peripheral nerve entrapment syndrome 77101846 G58.8 Abdominal wall pain 1620 25971 R10.31 Health Concerns Section Related Observation LastModified by Organization Detai ls LastModified Time None Recorded Concern Status LastModified by Organization Details LastModified Time None Recorded Advance Directives Directive None Recorded Payers Encounter Date Sequence Insurance Name Policy Number Policy Arriaza Covered Member ID Arriaza Member ID Guarantor Name 09/23/2015 1 [facility] [place] [id number] [facility] [id number] [facility] 09/23/2015 2 [place] [facility] [id number] [facility] 11/02/2015 1 [facility] [employer] ([facility] [id number] [facility] [id number] [facility] 11/02/2015 2 [place] [facility] [id number] [facility] 12/08/2015 1 [facility] [employer] ([facility] [id number] [facility] [id number] [facility] 12/08/2015 2 [place] [facility] Hill Fernandez [id number] Hill Fernandez Notes Date Note Type Note [...] MD [address] [facility] , [address] [facility], [place], [address], [email or web address] [facility] [employer] [facility] 09/29/2015 15:45:26 11/02/2015 text/html She is here for a trial of scar infiltration under ultrasound guidance. She states she has seen a gastro enterologist at [place] and is waiting for investigations. Isa Dubose MD [address] [facility] , [address], [place], [address], [email or web address] [facility] [employer] [facility] 11/05/2015 11:30:07 12/08/2015 text/html She is here for a follow up after a trial of scar infiltration under ultrasound guidance. She reports no pain benefit. She states she has seen a gastro enterologist at [place] and is waiting for investigations. Isa Dubose MD [address] [facility] , [address], [place], [address], [email or web address] [facility] [employer] [facility] 12/20/2015 15:40:08 OBGyn Episode No OBEpisode recorded.
== END 2024-09-03 14:00 | disposition home or self-care (01) ==
LOC: HO.HWS 11:10
PROVIDERS: PCP Nurse Practitioner Family; Visit Provider Advanced Practice Midwife
DX: N83.202 Unspecified ovarian cyst, left side (principal)
CPT/HCPCS: 99213

== ENCOUNTER → 2024-09-03 11:10 | Outpatient (BNVA) | payer OTHER, SELFPAY | PROVIDERS: PCP Nurse Practitioner Family; Visit Provider Advanced Practice Midwife ==

== ENCOUNTER 2024-11-17 12:19 | Outpatient (REF) | payer OTHER, SELFPAY ==
--- NOTE | ~2024-11-17 | US_ITS ---
CLINICAL HISTORY: N83.202 - Unspecified ovarian cyst, left side Ultrasound of the female pelvis Comparison: US - US PELVIC AND TRANSVAGINAL - 09/01/24 13:06 EDT Technique: Grayscale ultrasound with assistance of color Doppler. Transabdominal scanning performed for overall anatomy. Transvaginal scanning performed for better anatomic delineation. Findings: Anteverted uterus measures 8.3 x 4.2 x 5.3 cm. Unremarkable myometrium. Trilaminar endometrium is thickened, 18 mm in thickness, no focal lesion or abnormal vascular flow. Small nabothian cysts. Normal right ovary, 3.1 x 3.0 x 2.2 cm. No abnormal vascular flow. Left ovary is enlarged, 5.9 x 4.1 x 5.1 cm, simple cyst 4.4 x 3.8 x 5.0 cm, previously 4.3 x 4.0 x 4.8 cm cm. No abnormal vascular flow. No free fluid. Impression: 1. Stable left ovarian cyst. 2. Abnormal thickening of endometrium, no focal lesion or abnormal vascular flow, may reflect hyperplasia, recommend coding clerk follow-up, tissue sampling can be confirmatory if warranted. This document has been electronically signed by: Norma Claros MD on 11/18/2024 11:38:00
--- OUTSIDE RECORDS SUMMARY | 2024-11-17 12:59 | XMS_ITS | Data Portability ---
Author Organization [facility] Address [address] [place] [address],[address] [address] Care Team Providers Care Handbag Frames Inspector Name Role Phone CHUYITA LASHELL Primary Care Provider REHAN FITZGERALD Referring Provider [...] guidance. The risks and benefits of the procedure were discussed in detail. She does not wish to have any injections at present. She will call for an appointment after seeing the gastroenterology. [email or web address] Not available 09/28/2015 [...] otherwise unremarkable. She has features of nerve entrapment.She is here fora scar infiltration under ultrasound guidance. The risks and benefits of the procedure were discussed in detail. She wishes to [...] otherwise unremarkable. She has features of nerve entrapment.She is here fora follow up after a scar infiltration under ultrasound guidance. She reports no pain benefit.I have advised her to follow up with her surgeon and her harness placer . I have also encouraged her to [...] By Organization Details Last Modified Time 09/23/2015 12426 She was advised against bed rest lasting longer than four days and to continue activities as tolerated. [email or web address] Not available 09/26/2015 07:44:01 11/02/2015 [id number] She was advised against bed rest lasting longer than four days and to continue activities as tolerated. [email or web address] Not available 11/03/2015 09:04:21 12/08/2015 [id number] She was advised against bed rest lasting longer than four days and to continue activities as tolerated. [email or web address] Not available 12/19/2015 08:46:27 Reason for Referral None Reported. Problems Name Problem SNOMED Code Status Onset Date Resolution Date Notes Provider Name and Address Organization Details Recorded Time Peripheral nerve entrapment syndrome 90317563 Active Isa dhaliwal MD [address] [facility] , [address], [place], [address], [place] [facility] 6 08:49:15 Abdominal wall pain 563528844 Active Isa dhaliwal MD [address] [facility] , [address], [facility] [place], [address], [place] [facility] 6 08:49:15 Problem Notes None recorded. Procedures Surgical History Date Name Laterality Status Provider Name and Address Organization Details Recorded Time 11/02/19 16 Trigger Point Injections under ultrasound guidance completed Isa Dubose MD [address] [facility] , [address], [place], [address], [facility] 11/03/2015 09:08:47 [...] Name and Address Organization Details Recorded Time 94602 amoxicill in medicatio n Not available Not available Not available 09/23/2015 723 [facility] GI distr ess Bryanna moya, [facility] 6 11:01:30 82793 Bactrim medicatio n Not available Not available Not available 09/23/2015 49681 9 [facility] GI distr ess Bryanna moya, [facility] 6 11:01:30 55302 azithromy zelalem medicatio n nausea Not available Not available 12/08/2015 26928 RxNorm Abdom inal pain Bryanna moya, [facility] 6 15:27:31 Medications Name Sig [...] Body mass index (BMI) Body weight Systolic And Diastolic Provider Name and Address Organization Details Last Updated DateTime 6 76 /min 162.56 cm 99 % 99 % 36.7 kg/m2 66181.7 6718 g 118/77 mm[Hg] [facility] 6 11:01:30 Date Recorded Oxygen saturation Oxygen saturation in Arterial blood by Pulse oximetry Heart rate Systolic And Diastolic Provider Name and Address Organization Details Last Updated DateTime 11/02/2015 98 % 98 % 87 /min 139/88 mm[Hg] [facility] 6 15:11:54 Date Recorded Heart rate Oxygen saturation Oxygen saturation in Arterial blood by Pulse oximetry Systolic And Diastolic Provider Name and Address Organization Details Last Updated DateTime 12/08/2015 78 /min 98 % 98 % 127/79 mm[Hg] [facility] 6 15:27:31 Social History Question Answer Notes LastModified by [employer] ion Details LastModified Time Tobacco Smoking Status Never Smoker Not Available [employer] 02/27/2020 03:16:10 Which Illicit Or Recreational Drugs Have You Used? No [id number] Information not available 02/27/2020 Education 10 Information no t available 09/23/2015 Live Alone Or With Others? With Others , Son , Daughter And Father Information not available 09/23/2015 Marital Status Informatio n not available 09/23/2015 Sex: Unknown Functional Status Question Answer Note LastModified by Organization D etails LastModified Time What is your level of alcohol consumption? None [id number] Information not available 02/27/2020 Are you currently employed? No [id number] Information not available 02/27/2020 Mental Status None recorded. Family History Relationship [...] SNOMED-CT Code Diagnosis ICD10 Code Diagnosis Note [id number] sIa Dubose MD PAIN OFFICE [address] [place] [address] 09/23/2015 10:05:00 09/26/2015 07:44:25 Peripheral nerve entrapment syndrome 12707481 G58.8 Abdominal wall pain 1620 76489 R10.31 [id number] Isa Dubose MD PAIN OFFICE [address] [place] [address] 11/02/2015 14:44:56 11/03/2015 09:10:13 Peripheral nerve entrapment syndrome 93956201 G58.8 Abdominal wall pain 1620 28132 R10.31 [id number] Isa Dubose MD PAIN OFFICE [address] [facility] [place] [address] 12/08/2015 15:02:23 12/19/2015 08:49:49 Peripheral nerve entrapment syndrome 21083018 G58.8 Abdominal wall pain 1620 65574 R10.31 Health Concerns Section Related Observation LastModified by Organization Detai ls LastModified Time None Recorded Concern Status LastModified by Organization Details LastModified Time None Recorded Advance Directives Directive None Recorded Payers Insurance Date Sequence Insurance Name Policy Number Policy Arriaza Covered Member ID Arriaza Member ID Guarantor Name 12/19/2015 1 [facility] [place] [place] [id number] [facility] [id number] [facility] 12/19/2015 2 [place] [id number] [facility] Notes Date Note Type Note Provider Name [...] appointment with gastroenterology. Isa Dubose MD [address] [facility] , [address], [place], [address], [email or web address] [facility] [employer] [facility] 09/29/2015 15:45:26 11/02/2015 text/html She is here for a trial of scar infiltration under ultrasound guidance. She states she has seen a gastro enterologist at [place] and is waiting for investigations. Isa Dubose MD [address] [facility] , [address], [place], [address], [email or web address] [facility] [employer] [facility] 11/05/2015 11:30:07 12/08/2015 text/html She is here for a follow up after a trial of scar infiltration under ultrasound guidance. She reports no pain benefit. She states she has seen a gastro enterologist at [place] and is waiting for investigations. Isa Dubose MD [address] [facility] , [address], [place], [address], [email or web address] [facility] [employer] [facility] 12/20/2015 15:40:08 OBGyn Episode No OBEpisode recorded.
== END 2024-11-17 12:20 | disposition home or self-care (01) ==
LOC: HO.US 12:19
PROVIDERS: PCP Nurse Practitioner Family; Visit Provider Advanced Practice Midwife
DX: N83.202 Unspecified ovarian cyst, left side (principal)
CPT/HCPCS: 76830; 76856

== ENCOUNTER → 2024-11-17 12:20 | Outpatient (BNV) | payer OTHER, SELFPAY | PROVIDERS: PCP Nurse Practitioner Family; Visit Provider Radiology Diagnostic Radiology | DX: N83.202 Unspecified ovarian cyst, left side (principal); N85.00 Endometrial hyperplasia, unspecified | CPT/HCPCS: 76830 ==

== ENCOUNTER 2024-12-09 11:42 | Outpatient (AMB) | payer OTHER, SELFPAY ==
--- NOTE | 2024-12-09 12:02 | MHC.OFFVIS ---
Intake Visit Reasons: TV ultra sound follow up Inspector Welded Parts: Inspector Welded Parts Present Allergies azithromycin (From ZITHROMAX) Allergy (Intermediate, Verified 09/03/24 11:10) STOMACH PAIN, dizziness, abd pain amoxicillin Allergy (Unknown, Verified 09/03/24 11:10) dizziness, abd pain Sulfa (Sulfonamide Antibiotics) Allergy (Unknown, Verified 09/03/24 11:10) dizziness, abd pain sulfamethoxazole (From BACTRIM) Adverse Reaction (Intermediate, Verified 09/03/24 11:10) STOMACH PAIN trimethoprim (From BACTRIM) Adverse Reaction (Intermediate, Verified 09/03/24 11:10) STOMACH PAIN Is last menstrual period known: Yes HPI Comments Details: Tele Health Video Visit Total time I personally spent on visit and management today: 23 minutes. Time spent included review of pertinent office notes in the electronic health record; review of laboratory and imaging results; review of personal family medical history; discussing diagnosis and plan of care with the patient; documenting the encounter in the EMR. Patient presents to discuss: Ultrasound results, history of left ovarian cyst, history of heavy menstrual bleeding. Intermittent left-sided pain. Painful menses. [facility] Medical History (Updated 09/03/24 @ 11:39 by Saritha Jain CNM) Fibroid Left ovarian cyst History of abnormal cervical Pap smear Surgical History H/O tooth extraction Hx of appendectomy History of colposcopy History of loop electrical excision procedure (LEEP) Hx of cone biopsy of cervix Hx of tonsillectomy Family History Maternal Grandmother Breast cancer Mother Cervical cancer Father No problems noted. Social History Alcohol intake: never Gender identity: Female Female Reproductive History Menstrual Age of Menarche: 11 Review of Systems Const All systems reviewed & are unremarkable except as noted in HPI and below Endo Reports no additional complaints Physical Exam Const General: cooperative, healthy appearing and no acute distress Psych Appearance: well kempt Attitude: cooperative Thought process: Normal thought process present Telehealth Telehealth [facility] Location of provider rendering services: practice address Location of patient: address on file Patient Identification confirmed using: Name, : Yes Telehealth method: video Patient verbally consented to billing insurance company: Yes Patient informed of any privacy concerns related to visit: Yes Results Reviewed Results Reviewed: [address] [address] Ultrasound Report Signed Patient: Hill Fernandez MR#: [id number] : 1980 Acct:[id number] Age/Sex: 44 / F ADM Date: 11/17/24 Loc: HO.US Attending Dr: Saritha Jain CNM Ordering Physician: Saritha Jain CNM Date of Service: 11/17/24 Procedure(s): US pelvic and transvaginal Accession Number(s): [id number] cc: Leatha Butler LEATHER ROLLER; Saritha Jain CNM~ CLINICAL HISTORY: N83.202 - Unspecified ovarian cyst, left side Ultrasound of the female pelvis Comparison: US - US PELVIC AND TRANSVAGINAL - 09/01/24 13:06 EDT Technique: Grayscale ultrasound with assistance of color Doppler. Transabdominal scanning performed for overall anatomy. Transvaginal scanning performed for better anatomic delineation. Findings: Anteverted uterus measures 8.3 x 4.2 x 5.3 cm. Unremarkable myometrium. Trilaminar endometrium is thickened, 18 mm in thickness, no focal lesion or abnormal vascular flow. Small nabothian cysts. Normal right ovary, 3.1 x 3.0 x 2.2 cm. No abnormal vascular flow. Left ovary is enlarged, 5.9 x 4.1 x 5.1 cm, simple cyst 4.4 x 3.8 x 5.0 cm, previously 4.3 x 4.0 x 4.8 cm cm. No abnormal vascular flow. No free fluid. Impression: 1. Stable left ovarian cyst. 2. Abnormal thickening of endometrium, no focal lesion or abnormal vascular flow, may reflect hyperplasia, recommend inside sales territory manager follow-up, tissue sampling can be confirmatory if warranted. This document has been electronically signed by: Norma Claros MD on 11/18/2024 11:38:00 Dictated By: Norma Claros MD Signed By: <Electronically signed by Norma Claros MD in OV> 11/18/24 1139 DD/ 1138 TD/TT: 11/18/24 1138 Hydrodynamics Teacher: Assessment & Plan Assessment & Plan (1) Abnormal uterine bleeding: Code(s): N93.9 - Abnormal uterine and vaginal bleeding, unspecified Category: Medical Plan: Discussed ultrasound findings including thickened endometrium. Due to history of heavy menstrual bleeding advised to have an endometrial biopsy procedure to rule out any abnormal cells including atypia, precancer and cancer. Preprocedural counseling and guidance reviewed advised to have something to eat and drink and take 3 ibuprofen with food 1 hour before her endometrial biopsy appointment time. The patient expressed understanding and agreement with the plan of care. All of her questions and concerns were addressed to the best of my ability. (2) Left ovarian cyst: Comment: 4.8cm 09/01/24 Code(s): N83.202 - Unspecified ovarian cyst, left side Category: Medical Plan Counseled regarding findings of: Ultrasound results- Impression: 1. Stable left ovarian cyst. 2. Abnormal thickening of endometrium, no focal lesion or abnormal vascular flow, may reflect hyperplasia, recommend inside sales territory manager follow-up, tissue sampling can be confirmatory if warranted. Simple ovarian cyst, which is benign, and most resolve on their own overtime. Limitations of testing for diagnostic purposes. Further monitoring and evaluation is recommended with US follow up short interval. Pelvic rest and warnings reviewed. Advised when to call for any increase or persistent pain to seek a medical emergency treatment in the ED. OCT comfort measures. Surgical consult if indicated for large cyst due to the risk of ovarian torsion. Follow up in person for test results. All of her questions and concerns were addressed to the best of my ability and shared decision making. She is agreeable to the plan of care. This note is constructed using voice recognition software. While every effort has been made to ensure accuracy, supervisor international reservations errors may have been included. Orders: Orders Thyroid Stimulating Hormone Today N92.1 - Excessive and frequent menstruation with irregular cycle, N93.9 - Abnormal uterine and vaginal bleeding, unspecified Complete Blood Count no Diff Today N93.9 - Abnormal uterine and vaginal bleeding, unspecified US pelvic and transvaginal 12/22/24 N83.202 - Unspecified ovarian cyst, left side, N93.9 - Abnormal uterine and vaginal bleeding, unspecified Coding Level of Care Code Tele Est Pt Level 3 (90230) Diagnoses Abnormal uterine bleeding N93.9 Left ovarian cyst N83.202
--- OUTSIDE RECORDS SUMMARY | 2024-12-09 12:47 | XMS_ITS | Data Portability ---
Author Organization [facility] Address [address] [place] [address],[address] [address] Care Team Providers Care Medical Science Liaison Name Role Phone CHUYITA LASHELL Primary Care [...] follow up with her surgeon and her hospice entrance attendant . I have also encouraged her to [...] By Organization Details Last Modified Time 09/23/2015 95659 She was advised against bed rest lasting longer than four days and to continue activities as tolerated. [email or web address] Not available 09/26/2015 07:44:01 11/02/2015 75900 She was advised against bed rest lasting longer than four days and to continue activities as tolerated. [email or web address] Not available 11/03/2015 09:04:21 12/08/2015 74920 She was advised against bed rest lasting longer than four days and to continue activities as tolerated. [email or web address] Not available 12/19/2015 08:46:27 Reason for Referral None Reported. Problems Name Problem SNOMED Code Status Onset Date Resolution Date Notes Provider Name and Address Organization Details Recorded Time Peripheral nerve entrapment syndrome 47897520 Active Isa dhaliwal MD [address] [facility] , [address], [place], [address], [place] [facility] 6 08:49:15 Abdominal wall pain 333803775 Active Isa dhaliwal MD [address] [facility] [address] [facility] , [address], [facility] [place], [address], [place] [facility] 6 08:49:15 Problem Notes None recorded. Procedures Surgical History Date Name Laterality Status Provider Name and Address Organization Details Recorded Time 11/02/19 16 Trigger Point Injections under ultrasound guidance completed Isa Dubose MD [address] [facility] , [address], [place], [address], [facility] 11/03/2015 09:08:47 [...] Name and Address Organization Details Recorded Time 20468 amoxicill in medicatio n Not available Not available Not available 09/23/2015 723 RxNorm GI distr ess Bryanna moya, [facility] 6 11:01:30 97686 Bactrim medicatio n Not available Not available Not available 09/23/2015 58628 9 RxNorm GI distr ess Bryanna moya, [facility] 6 11:01:30 20158 azithromy zelalem medicatio n nausea Not available Not available 12/08/2015 58341 RxNorm Abdom inal pain Bryanna moya, [facility]IE [...] cm 99 % 99 % 36.7 kg/m2 57441.7 6718 g 118/77 mm[Hg] [facility] 11:01:30 Date Recorded Oxygen saturation Oxygen saturation in Arterial blood by Pulse oximetry Heart rate Systolic And Diastolic Provider Name and Address Organization Details Last Updated DateTime 11/02/2015 98 % 98 % 87 /min 139/88 mm[Hg] [facility] 15:11:54 Date Recorded Heart rate Oxygen saturation Oxygen saturation in Arterial blood by Pulse oximetry Systolic And Diastolic Provider Name and Address Organization Details Last Updated DateTime 12/08/2015 78 /min 98 % 98 % 127/79 mm[Hg] [facility] 6 15:27:31 Social History Question Answer Notes LastModified by [employer] ion Details LastModified Time Tobacco Smoking Status Never Smoker Not Available [employer] 02/27/2020 03:16:10 Which Illicit Or Recreational Drugs Have You Used? No [id number] Information not available 02/27/2020 Education 10 Information no t available 09/23/2015 Live Alone Or With Others? With Others , Son , Daughter And Father Information not available 09/23/2015 Marital Status Informatio n not available 09/23/2015 Sex: Unknown Functional Status Question Answer Note LastModified by Organization D etails LastModified Time What is your level of alcohol consumption? None [id number] Information not available 02/27/2020 Are you currently employed? No [id number] Information not available 02/27/2020 Mental Status None [...] SNOMED-CT Code Diagnosis ICD10 Code Diagnosis Note 15038 Isa Dubose MD PAIN OFFICE [address] [place] [address] 09/23/2015 10:05:00 09/26/2015 07:44:25 Peripheral nerve entrapment syndrome 03801325 G58.8 Abdominal wall pain 1620 25763 R10.31 85531 Isa Dubose MD PAIN OFFICE [address] [place] [address] 11/02/2015 14:44:56 11/03/2015 09:10:13 Peripheral nerve entrapment syndrome 30625034 G58.8 Abdominal wall pain 1620 80768 R10.31 15897 Isa Dubose MD PAIN OFFICE [address] [facility] [place] [address] 12/08/2015 15:02:23 12/19/2015 08:49:49 Peripheral nerve entrapment syndrome 79650768 G58.8 Abdominal wall pain 1620 38085 R10.31 Health Concerns Section Related Observation LastModified by Organization Detai ls LastModified Time None Recorded Concern Status LastModified by Organization Details LastModified Time None Recorded Advance Directives Directive None Recorded Payers Insurance Date Sequence Insurance Name Policy Number Policy Arriaza Covered Member ID Arriaza Member ID Guarantor Name 12/19/2015 1 [facility] [place] [id number] [facility] [id number] [facility] 12/19/2015 2 [place] [facility] [id number] [facility] OBGyn Episode No OBEpisode recorded.
== END 2024-12-09 13:15 | disposition home or self-care (01) ==
LOC: HO.HWS 11:42
PROVIDERS: PCP Nurse Practitioner Family; Visit Provider Advanced Practice Midwife
DX: N93.9 Abnormal uterine and vaginal bleeding, unspecified (principal); N83.202 Unspecified ovarian cyst, left side
CPT/HCPCS: 99213

== ENCOUNTER 2024-12-12 10:36 | Outpatient (REF) | payer OTHER, SELFPAY ==
[2024-12-12 11:17] LABS: Hematocrit 36.9 % (37.0-47.0); Hemoglobin 12.5 g/dl (12.0-16.0); Mean Corpuscular HGB Conc 33.9 g/dl (31.0-35.0); Mean Corpuscular Hemoglobin 30.3 pg (27.0-33.0); Mean Corpuscular Volume 89.6 fL (80.0-98.0); NRBC Abs Auto 0.000 X10*3/uL (0.0-0.012); NRBC Pct Auto 0.0 /100WBC (0.0-0.2); Platelet Count 357 X10*3/uL (160-400); Red Blood Count 4.12 X10*6/uL (4.20-5.50); White Blood Count 5.4 X10*3/uL (4.8-10.8)
[2024-12-12 13:23] LABS: Thyroid Stimulating Hormone 0.37 uIU/mL (0.32-4.0)
== END 2024-12-12 10:37 | disposition home or self-care (01) ==
LOC: HO.LAB 10:36
PROVIDERS: PCP Nurse Practitioner Family; Visit Provider Advanced Practice Midwife
DX: N92.1 Excessive and frequent menstruation with irregular cycle (principal); N93.9 Abnormal uterine and vaginal bleeding, unspecified
CPT/HCPCS: 36415; 84443; 85027

== ENCOUNTER 2024-12-22 09:41 | Outpatient (REF) | payer OTHER, SELFPAY ==
--- NOTE | ~2024-12-22 | US_ITS ---
CLINICAL HISTORY: N83.202 - Unspecified ovarian cyst, left side --- Additional Notes or Special Instructions: repeat Ultrasound of female pelvis with Doppler Comparison: US/SR - US PELVIC AND TRANSVAGINAL - 11/17/24 12:40 EDT Technique: Grayscale ultrasound with assistance of color Doppler and spectral analysis. Transabdominal scanning performed for overall anatomy. Transvaginal scanning performed for better anatomic delineation. Findings: Anteverted uterus measures 9.7 x 4.6 x 5.6 cm, unremarkable myometrium, no uterine fibroid is seen. Trilaminar endometrium measures 17 mm in thickness, the endometrium appears more heterogeneous with areas of lobulated hyperechogenicity on cine images, no abnormal vascular flow on the submitted images. Small nabothian cysts. Right ovary is only seen transabdominally and appears normal, 1.9 x 1.1 x 1.8 cm, no abnormal vascular flow, no spectral tracing was obtained. Left ovary measures 4.5 x 2.0 x 2.6 cm, paraovarian or exophytic simple ovarian cyst 4.7 x 3.9 x 4.1 cm, previously 4.4 x 3.8 x 5.0 cm;, additional two avascular cysts are new, the larger cyst demonstrates peripheral curvilinear echogenicity likely septation 2.2 x 1.7 x 1.9 cm. No abnormal vascular flow of the left ovary, arterial and venous spectral tracing of the ovarian parenchyma documented. No free fluid in the pelvis. Impression: 1. Stable left paraovarian or exophytic ovarian simple cyst, additional left ovarian cysts with dominant cyst minimally complex. 2. Persistent endometrial thickening with lobulated hyperechogenicity, polyps can not be excluded. 3. Recommend considering further evaluation by pelvic MRI. This document has been electronically signed by: Norma Claros MD on 12/22/2024 11:17:19
== END 2024-12-22 09:42 | disposition home or self-care (01) ==
LOC: HO.US 09:41
PROVIDERS: PCP Nurse Practitioner Family; Visit Provider Advanced Practice Midwife
DX: N83.202 Unspecified ovarian cyst, left side (principal); N93.9 Abnormal uterine and vaginal bleeding, unspecified
CPT/HCPCS: 76830; 76856

== ENCOUNTER → 2024-12-22 09:43 | Outpatient (BNV) | payer OTHER, SELFPAY | PROVIDERS: PCP Nurse Practitioner Family; Visit Provider Radiology Diagnostic Radiology | DX: N83.202 Unspecified ovarian cyst, left side (principal) | CPT/HCPCS: 76830; 76856 ==

== ENCOUNTER 2024-12-25 08:09 | Outpatient (AMB) | payer OTHER, SELFPAY ==
--- NOTE | 2024-12-25 08:42 | A.OFFVIS_ITS ---
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 Carbon Electrodes: Supervisor Carbon Electrodes Present (Sierra) Accompanied by: Self / Same As Patient Allergies azithromycin (From ZITHROMAX) Allergy (Intermediate, Verified 12/25/24 08:43) STOMACH PAIN, dizziness, abd pain amoxicillin Allergy (Unknown, Verified 12/25/24 08:43) dizziness, abd pain Sulfa (Sulfonamide Antibiotics) Allergy (Unknown, Verified 12/25/24 08:43) dizziness, abd pain sulfamethoxazole (From BACTRIM) Adverse Reaction (Intermediate, Verified 12/25 08:43) STOMACH PAIN trimethoprim (From BACTRIM) Adverse Reaction (Intermediate, Verified 12/25/24 08:43) STOMACH PAIN HPI Comments Details: Patient is here today for an endometrial biopsy due to AUB. History of left ovarian cyst, she feels more uncomfortable recently. UPT is negative, history of vasectomy with partner. [facility] Medical History (Updated 12/25/24 @ 09:11 by Saritha Jain CNM) Complex cyst of left ovary Fibroid Left ovarian cyst History of abnormal cervical Pap smear Surgical History H/O tooth extraction Hx of appendectomy History of colposcopy History of loop electrical excision procedure (LEEP) Hx of cone biopsy of cervix Hx of tonsillectomy Family History Maternal Grandmother Breast cancer Mother Cervical cancer Father No problems noted. Social History Alcohol intake: never Gender identity: Female Female Reproductive History Menstrual Age of Menarche: 11 Review of Systems Const All systems reviewed & are unremarkable except as noted in HPI and below Physical Exam Const General: cooperative, healthy appearing and no acute distress Orientation/consciousness: patient oriented x3 GI Inspection: Yes normal to inspection Palpation (GI): Soft to palpation and Other GI palpation findings present (Nontender) Rectal Exam - Female: visual inspection normal General: Yes bladder normal to palpation External Female Exam: normal appearance of the urethra Speculum Exam - Vagina: normal appearance of the vagina, normal palpation and normal vaginal discharge Speculum Exam - Cervix: normal appearance of the cervix, normal palpation and Other cervical findings present (Post LEEP appearance) Bimanual exam- vagina & uterus: normal bimanual exam, normal palpation, uterine size normal, bladder normal to palpation, normal palpation, uterine shape normal and non-tender Bimanual Exam- Adnexa, other: normal adnexae and tender on the left Neuro General: patient oriented x3 Office Procedures Endometrial Biopsy Details: The patient is here today for an endometrial biopsy due to AUB to rule out any pathology including atypical, hyperplasia or cancer cells of the uterus. She was counseled regarding anticipatory guidance for the procedure including the risks for pain, infection, bleeding, perforation, potential injury to the tissues may include the cervix, uterus, tubes, bladder and bowels. These injuries may include further treatment and evaluation including surgery, blood transfusions, antibiotics, hospitalizations and anesthesia. Permanent injury and scarring can occur. She was consented for the procedure, and the consent forms were signed. She is agreeable to have the procedure today. All questions were answered. Endometrial Biopsy Procedure: The patient was placed in the dorsal lithotomy position and a sterile speculum inserted. Using aseptic technique for the procedure. The cervix was cleansed with Betadine x 3 swabs. A single toothed tenaculum was placed on the cervix for stabilization and the uterus was sounded to 8 cm with a 4mm pipelle, and tissue sample obtained. Minimal bleeding was observed. The tissue sample was placed in formalin in a patient labeled container by staff assisting and sent to the pathology department for processing and interpretation. The patient tolerate the procedure well and was in good condition when leaving the department. Endometrial Biopsy Post Procedure Care: Nothing in the vagina including: tampons, douching or intimacy until all the bleeding has subsided. There may be some post procedure bleeding for several days, this bleeding is usually light and may turn to a light brown or pink color. Mild cramps may occurs. Nothing in the vaginal including: tampons, douching, or intimacy until all the bleeding has subsided. You may take an over the counter mild analgesic such as Tylenol or Advil (if no allergies) per the manufactures recommendation on dosing, frequency, and follow the directions completely. Call the office if any: fever (over 100.4), flu like symptoms, abdominal pain (worse than cramping), foul smelling, infected appearing vaginal discharge, or heavy bleeding. If indicated: Use condoms to prevent and STI's, and only after the bleeding has stopped completely. Return to the office in 2 weeks for results and plan of care. This note is constructed using voice recognition software. While every effort has been made to ensure accuracy, logging equipment mechanic errors may have been included. [id number] Biopsy Results AMB Test Urine AMB Test Urine Negative Last Edit by Leatha Russell LPN on 09:14 Results Reviewed Results Reviewed: Laboratory Last Values Tst Clinic Negative 12/25/24 09:13 [place] [address] Ultrasound Report Signed Patient: Hill Fernandez MR#: [id number] : 1980 Acct:[id number] Age/Sex: 44 / F ADM Date: 12/22/24 Loc: HO.US Attending Dr: Saritha Jain CNM Ordering Physician: Saritha Jain CNM Date of Service: 12/22/24 Procedure(s): US pelvic and transvaginal Accession Number(s): [id number] cc: Leatha Butler GIS DEVELOPER; Saritha Jain CNM~ CLINICAL HISTORY: N83.202 - Unspecified ovarian cyst, left side --- Additional Notes or Special Instructions: repeat Ultrasound of female pelvis with Doppler Comparison: US/SR - US PELVIC AND TRANSVAGINAL - 11/17/24 12:40 EDT Technique: Grayscale ultrasound with assistance of color Doppler and spectral analysis. Transabdominal scanning performed for overall anatomy. Transvaginal scanning performed for better anatomic delineation. Findings: Anteverted uterus measures 9.7 x 4.6 x 5.6 cm, unremarkable myometrium, no uterine fibroid is seen. Trilaminar endometrium measures 17 mm in thickness, the endometrium appears more heterogeneous with areas of lobulated hyperechogenicity on cine images, no abnormal vascular flow on the submitted images. Small nabothian cysts. Right ovary is only seen transabdominally and appears normal, 1.9 x 1.1 x 1.8 cm, no abnormal vascular flow, no spectral tracing was obtained. Left ovary measures 4.5 x 2.0 x 2.6 cm, paraovarian or exophytic simple ovarian cyst 4.7 x 3.9 x 4.1 cm, previously 4.4 x 3.8 x 5.0 cm;, additional two avascular cysts are new, the larger cyst demonstrates peripheral curvilinear echogenicity likely septation 2.2 x 1.7 x 1.9 cm. No abnormal vascular flow of the left ovary, arterial and venous spectral tracing of the ovarian parenchyma documented. No free fluid in the pelvis. Impression: 1. Stable left paraovarian or exophytic ovarian simple cyst, additional left ovarian cysts with dominant cyst minimally complex. 2. Persistent endometrial thickening with lobulated hyperechogenicity, polyps can not be excluded. 3. Recommend considering further evaluation by pelvic MRI. This document has been electronically signed by: Norma Claros MD on 12/22/2024 11:17:19 Dictated By: Norma Claros MD Signed By: <Electronically signed by Norma Claros MD in OV> 12/22/24 1118 DD/ 111 TD/TT: 12/22/24 111 Well Service Floorperson: Assessment & Plan Assessment & Plan (1) Complex cyst of left ovary: Code(s): N83.292 - Other ovarian cyst, left side Category: Medical Plan: Counseled regarding findings of: Complex ovarian cyst, which is often benign, and most resolve on their own overtime. Some develop into premalignant or malignant tumors. Limitations of testing for diagnostic purposes. Further monitoring and evaluation is recommended with US, possible CT, or MRI study. If persists, or is indicated (Ca-125, Carbohydrate Antigen 19-9, & Carcinoembryonic Antigen) labs will be ordered and referral to [facility] or general gynecology for MD care if indicated for possible surgical consult. Follow up MRI results. Advised warnings for ovarian torsion when to call and seek emergency care, comfort measure. All of her questions and concerns were addressed to the best of my ability and shared decision making. She is agreeable to the plan of care. Total time I personally spent on visit and management today: ?20 minutes. Time spent included review of pertinent office notes in the electronic health record; review of laboratory and imaging results; review of personal family medical history; performing physical exam; discussing diagnosis and plan of care with the patient; documenting the encounter in the EMR. This note is constructed using voice recognition software. While every effort has been made to ensure accuracy, logging equipment mechanic errors may have been included. (2) Abnormal uterine bleeding: Code(s): N93.9 - Abnormal uterine and vaginal bleeding, unspecified Category: Medical Plan Endometrial biopsy procedure completed. Plan follow up biopsy results. Counseled regarding treatment options, she is not interested in the Mirena IUD, would like to research if she is a candidate for hysterectomy, discuss this is not the 1st choice but if there is an indication she will be referred to [facility] for surgical consultation. Plan further discussion at her follow up appointment. The patient expressed understanding and agreement with the plan of care. All of her questions and concerns were addressed to the best of my ability. Orders: Orders MR pelvis wo/w con Today N83.292 - Other ovarian cyst, left side AMB Endometrial Biopsy Today N93.9 - Abnormal uterine and vaginal bleeding, unspecified AMB HCG Urine Test Today Z32.02 - Encounter for test, result negative Coding Level of Care Code Est Pt Level 2 (02375) Procedure Only Diagnoses Complex cyst of left ovary N83.292 Abnormal uterine bleeding N93.9 CPT Codes Endometrial Biopsy - CPT: 14283-Repzyqqqcqn Biopsy ([id number])
== END 2024-12-25 10:22 | disposition home or self-care (01) ==
LOC: HO.HWS 08:09
PROVIDERS: PCP Nurse Practitioner Family; Visit Provider Advanced Practice Midwife
DX: N83.292 Other ovarian cyst, left side (principal); N93.9 Abnormal uterine and vaginal bleeding, unspecified; Z32.02 Encounter for pregnancy test, result negative
CPT/HCPCS: 58100; 99212

== ENCOUNTER 2024-12-25 08:09 | Outpatient (REF) | payer OTHER, SELFPAY | END 2024-12-25 08:10 | disposition home or self-care (01) | LOC: HO.LNP 08:09 | PROVIDERS: PCP Nurse Practitioner Family; Visit Provider Advanced Practice Midwife | DX: N83.292 Other ovarian cyst, left side (principal); N93.9 Abnormal uterine and vaginal bleeding, unspecified; Z32.02 Encounter for pregnancy test, result negative | CPT/HCPCS: 58100; 81025; 88305; 99212 ==

== ENCOUNTER → 2025-01-04 13:26 | Outpatient (BNV) | payer OTHER, SELFPAY | PROVIDERS: PCP Nurse Practitioner Family; Visit Provider Radiology Diagnostic Radiology | DX: N83.292 Other ovarian cyst, left side (principal) | CPT/HCPCS: 72197 ==

== ENCOUNTER 2025-01-04 13:27 | Outpatient (REF) | payer OTHER, SELFPAY ==
--- NOTE | ~2025-01-04 | MR_ITS ---
EXAMINATION: MR PELVIS WITHOUT AND WITH CONTRAST CLINICAL INFORMATION: N83.292. Other ovarian cyst, left side. COMPARISON: Correlated to pelvic ultrasound dated December 22, 2024 reporting a 4.5 and 4.7 cm left paraovarian cyst. TECHNIQUE: Multiplanar, multisequence MRI pelvis without and following the gadolinium based IV contrast administration of 8.0 cc without reported immediate complications. FINDINGS: Patient's motion artifact. The uterus is in anteversion flexion position and measures 4.6 x 6.0 x 8.2 cm. The junctional zone measures 5 mm. The cervix measures 2.5 cm. Small Nabothian cysts. No enhancing mass within the myometrium. The right ovary measures 3 x 2 x 2 cm without solid or cystic lesion. The left ovary measures 4 x 2 x 3 cm. There is a 4.8 cm well-defined thin wall nonspecific dated, nonenhancing fluid signal characteristic lesion. No free fluid in the cul-de-sac. No gross lymphadenopathy in the ira iliac. There are prominent lymph nodes in the inguinal region. No intestinal dilatation. Bone marrow inhomogeneity without enhancing lesion. Grade 1 retrolisthesis L4-5 and spondylosis. There is protrusion of the rectum below the perineal floor. Bladder is fluid-filled.. MR/MR pelvis wo/w con IMPRESSION: 4.8 cm simple cyst, left ovary. Questionable rectal prolapsed. Electronically signed by: Nick Almonte MD 01/05/2025 08:18 AM EDT
== END 2025-01-04 13:28 | disposition home or self-care (01) ==
LOC: HO.MRI 13:27
PROVIDERS: PCP Nurse Practitioner Family; Visit Provider Advanced Practice Midwife
DX: N83.292 Other ovarian cyst, left side (principal)
CPT/HCPCS: 72197; A9585

== ENCOUNTER 2025-01-20 12:39 | Outpatient (AMB) | payer OTHER, SELFPAY ==
--- NOTE | 2025-01-20 12:39 | MHC.OFFVIS ---
Intake Visit Reasons: Emb Results/MRI Results Intake Note: cell #[phone] Internet Programmer: Internet Programmer Present Allergies azithromycin (From ZITHROMAX) Allergy (Intermediate, Verified 01/20/25 12:40) STOMACH PAIN, dizziness, abd pain amoxicillin Allergy (Unknown, Verified 01/20/25 12:40) dizziness, abd pain Sulfa (Sulfonamide Antibiotics) Allergy (Unknown, Verified 01/20/25 12:40) dizziness, abd pain sulfamethoxazole (From BACTRIM) Adverse Reaction (Intermediate, Verified 01/20/25 12:40) STOMACH PAIN trimethoprim (From BACTRIM) Adverse Reaction (Intermediate, Verified 01/20/25 12:40) STOMACH PAIN Is last menstrual period known: Yes Last menstrual period: 01/15/25 HPI Comments Details: Tele Health Visit Total time I personally spent on visit and management today: 30 minutes. Time spent included review of pertinent office notes in the electronic health record; review of laboratory and imaging results; review of personal family medical history; discussing diagnosis and plan of care with the patient; documenting the encounter in the EMR. Patient presents to discuss: Endometrial biopsy and MRI results, history of AUB and ovarian cyst. She reports ongoing left-sided pain for at least a year, she is interested in the hysterectomy. [facility] Medical History (Updated 01/20/25 @ 13:18 by Saritha Jain CNM) Fibroid Left ovarian cyst History of abnormal cervical Pap smear Surgical History H/O tooth extraction Hx of appendectomy History of colposcopy History of loop electrical excision procedure (LEEP) Hx of cone biopsy of cervix Hx of tonsillectomy Family History Maternal Grandmother Breast cancer Mother Cervical cancer Father No problems noted. Social History Alcohol intake: never Gender identity: Female Female Reproductive History Menstrual Age of Menarche: 11 Date of last menstrual period: 01/15/25 Review of Systems Const All systems reviewed & are unremarkable except as noted in HPI and below Endo Reports no additional complaints Physical Exam Const General: cooperative, healthy appearing and no acute distress Psych Appearance: well kempt Attitude: cooperative Thought process: Normal thought process present Telehealth Telehealth Telehealth Platform: [employer] Location of provider rendering services: practice address Location of patient: other Patient Identification confirmed using: Name, : Yes Telehealth method: video Patient verbally consented to treatment: Yes Patient verbally consented to billing insurance company: Yes Patient informed of any privacy concerns related to visit: Yes Results Reviewed Results Reviewed: Surgical Pathology [id number] Name: Hill Fernandez Age/Sex: 44/F Attending: Saritha Jain CNM : 1980 Submitted by: Saritha Jain CNM Copies to: Leatha Butler NP MR #: [id number] Status: DEP REF Collected: 12/25/24 Location: [facility] Received: 12/25/24 Diagnosis Endometrium, biopsy: Early secretory endometrium with focal stromal breakdown; negative for atypia, hyperplasia or malignancy. Clinical History Abnormal uterine bleeding Microscopic Description Microscopic sections reviewed. Material Received Endometrial biopsy Gross Description Received in formalin labeled ?EMB? is a 2.0 x 1.5 x 0.5 cm aggregate of multiple irregular and tubular cast fragments of kelly-pink and red-maroon tissue, mucus and blood, submitted in toto in a cassette labeled A. CEDS Copies To Leatha Butler NP [address] [place] [address] [id number] Saritha Jain CNM [facility] [address] [place] [address] NOTE: Unless otherwise stated, all tissue is formalin-fixed and paraffin-embedded. Some or all of the immunohistochemical tests reported herein may have been developed and their performance characteristics determined by [facility]. They have not been cleared or approved by the U.S. Food and Drug Administration (FDA). However, the FDA has determined that such clearance or approval is not necessary. This laboratory is certified under the Clinical Laboratory Improvement Amendments of 1988 (CLIA) as qualified to perform high complexity clinical laboratory testing. Patient: Hill Fernandez Age/Sex: 44/F MR#: [id number] Page 1 of 2 Surgical Pathology [id number] Electronically Signed By: America Recinos MD 12/26/24 1073 Patient: Hill Fernandez Age/Sex: 44/F MR#: [id number] Page 2 of 2 [place] [address] Magnetic Resonance Report Signed Patient: Hill Fernandez MR#: [id number] : 1980 Acct:[id number] Age/Sex: 44 / F ADM Date: 01/04/25 Loc: HO.MRI Attending Dr: Saritha Jain CNM Ordering Physician: Saritha Jain CNM Date of Service: 01/04/25 Procedure(s): MR pelvis wo/w con Accession Number(s): [id number] cc: Leatha Butler [employer]BBER [employer]OUNDER; Saritha Jain CNM~ EXAMINATION: MR PELVIS WITHOUT AND WITH CONTRAST CLINICAL INFORMATION: N83.292. Other ovarian cyst, left side. COMPARISON: Correlated to pelvic ultrasound dated December 22, 2024 reporting a 4.5 and 4.7 cm left paraovarian cyst. TECHNIQUE: Multiplanar, multisequence MRI pelvis without and following the gadolinium based IV contrast administration of 8.0 cc without reported immediate complications. FINDINGS: Patient's motion artifact. The uterus is in anteversion flexion position and measures 4.6 x 6.0 x 8.2 cm. The junctional zone measures 5 mm. The cervix measures 2.5 cm. Small Nabothian cysts. No enhancing mass within the myometrium. The right ovary measures 3 x 2 x 2 cm without solid or cystic lesion. The left ovary measures 4 x 2 x 3 cm. There is a 4.8 cm well-defined thin wall nonspecific dated, nonenhancing fluid signal characteristic lesion. No free fluid in the cul-de-sac. No gross lymphadenopathy in the ira iliac. There are prominent lymph nodes in the inguinal region. No intestinal dilatation. Bone marrow inhomogeneity without enhancing lesion. Grade 1 retrolisthesis L4-5 and spondylosis. There is protrusion of the rectum below the perineal floor. Bladder is fluid-filled.. MR/MR pelvis wo/w con IMPRESSION: 4.8 cm simple cyst, left ovary. Questionable rectal prolapsed. Electronically signed by: Nick Almonte MD 01/05/2025 08:18 AM EDT Dictated By: Nick Oconnor MD Signed By: <Electronically signed by Nick Squires MD in OV> 01/05/25 0818 DD/ 1342 TD/TT: 01/04/25 1410 Facility Practice Specialist: Assessment & Plan Assessment & Plan (1) Abnormal uterine bleeding: Code(s): N93.9 - Abnormal uterine and vaginal bleeding, unspecified Category: Medical Plan: Discussed: Endometrial biopsy results- Diagnosis Endometrium, biopsy: Early secretory endometrium with focal stromal breakdown; negative for atypia, hyperplasia or malignancy. (2) Left ovarian cyst: Comment: 4.8cm 09/01/24 Code(s): N83.202 - Unspecified ovarian cyst, left side Category: Medical Plan: Discuss findings, patient would like a surgical consult. Referral to be placed. Report any pain changes if increased all the office or if significant then to go to the emergency room for sooner evaluation. The patient expressed understanding and agreement with the plan of care. All of her questions and concerns were addressed to the best of my ability. Plan Discussed: MRI findings-see chart copy. The patient expressed understanding and agreement with the plan of care. All of her questions and concerns were addressed to the best of my ability. This note is constructed using voice recognition software. While every effort has been made to ensure accuracy, patent counsel errors may have been included. Coding Level of Care Code Tele Est Pt Level 3 (63995) Diagnoses Abnormal uterine bleeding N93.9 Left ovarian cyst N83.202
== END 2025-01-21 07:41 | disposition home or self-care (01) ==
LOC: HO.HWS 12:39
PROVIDERS: PCP Nurse Practitioner Family; Visit Provider Advanced Practice Midwife
DX: N93.9 Abnormal uterine and vaginal bleeding, unspecified (principal); N83.202 Unspecified ovarian cyst, left side
CPT/HCPCS: 99213

== ENCOUNTER 2025-02-05 14:09 | Outpatient (REF) | payer OTHER, SELFPAY ==
[2025-02-05 14:24] LABS: Hematocrit 33.9 % (37.0-47.0); Hemoglobin 11.5 g/dl (12.0-16.0); Mean Corpuscular HGB Conc 33.9 g/dl (31.0-35.0); Mean Corpuscular Hemoglobin 30.6 pg (27.0-33.0); Mean Corpuscular Volume 90.2 fL (80.0-98.0); NRBC Abs Auto 0.000 X10*3/uL (0.0-0.012); NRBC Pct Auto 0.0 /100WBC (0.0-0.2); Platelet Count 329 X10*3/uL (160-400); Red Blood Count 3.76 X10*6/uL (4.20-5.50); White Blood Count 8.3 X10*3/uL (4.8-10.8)
--- OUTSIDE RECORDS SUMMARY | 2025-02-05 18:36 | XMS_ITS | Data Portability ---
Author Organization [facility] Address [address] [place] [address],[address] [address] Care Team Providers Care Tail Dogger Name Role Phone CHUYITA LASHELL Primary Care Provider [phone] REHAN FITZGERALD Referring Provider Assessment Encounter Date [...] follow up with her surgeon and her application processor . I have also encouraged her to [...] By Organization Details Last Modified Time 09/23/2015 89842 She was advised against bed rest lasting longer than four days and to continue activities as tolerated. [email or web address] Not available 09/26/2015 07:44:01 11/02/2015 97346 She was advised against bed rest lasting longer than four days and to continue activities as tolerated. [email or web address] Not available 11/03/2015 09:04:21 12/08/2015 07069 She was advised against bed rest lasting longer than four days and to continue activities as tolerated. [email or web address] Not available 12/19/2015 08:46:27 Reason for Referral None Reported. Problems Name Problem SNOMED Code Status Onset Date Resolution Date Notes Provider Name and Address Organization Details Recorded Time Peripheral nerve entrapment syndrome 31910650 Active Isa dhaliwal MD [address] [facility] , [address], [place], [address], [place] [facility] 6 08:49:15 Abdominal wall pain 564883982 Active Isa dhaliwal MD [address] [facility] , [address], [facility] [place], [address], [place] [facility] 6 08:49:15 Problem Notes None recorded. Procedures Surgical History Date Name Laterality Status Provider Name and Address Organization Details Recorded Time 11/02/19 16 Trigger Point Injections under ultrasound guidance completed Isa Dubose MD [address] [facility] , [address], [place], [address], [facility] 11/03/2015 09:08:47 [...] Name and Address Organization Details Recorded Time 79331 amoxicill in medicatio n Not available Not available Not available 09/23/2015 723 [facility] GI dist[facility] ess Bryanna moya, [facility] 6 11:01:30 22678 Bactrim medicatio n Not available Not available Not available 09/23/2015 08545 9 RxNorm GI distr ess Bryanna moya, [facility] 6 11:01:30 88828 azithromy zelalem medicatio n nausea Not available Not available 12/08/2015 87235 RxNorm Abdom inal pain Bryanna moya, [facility]IE [...] cm 99 % 99 % 36.7 kg/m2 20237.7 6718 g 118/77 mm[Hg] [facility] 11:01:30 Date Recorded Oxygen saturation Oxygen saturation in Arterial blood by Pulse oximetry Heart rate Systolic And Diastolic Provider Name and Address Organization Details Last Updated DateTime 11/02/2015 98 % 98 % 87 /min 139/88 mm[Hg] [facility] 6 15:11:54 Date Recorded Heart rate Oxygen saturation Oxygen saturation in Arterial blood by Pulse oximetry Systolic And Diastolic Provider Name and Address Organization Details Last Updated DateTime 12/08/2015 78 /min 98 % 98 % 127/79 mm[Hg] [facility] 6 15:27:31 Social History Question Answer Notes LastModified by [employer] ion Details LastModified Time Tobacco Smoking Status Never Smoker Not Available [employer] 02/27/2020 03:16:10 Which Illicit Or Recreational Drugs Have You Used? No [id number] Information not available 02/27/2020 Education 10 Information no t available 09/23/2015 Live Alone Or With Others? With Others , Son , Daughter And Father Information not available 09/23/2015 Marital Status Informatio n not available 09/23/2015 Sex: Unknown Functional Status Question Answer Note LastModified by Organization D etails LastModified Time What is your level of alcohol consumption? None [id number] Information not available 02/27/2020 Are you currently employed? No [id number] Information not available 02/27/2020 Mental Status None [...] Diagnosis SNOMED-CT Code Diagnosis ICD10 Code Diagnosis IMO Codes Diagnosis Note [id number] Isa Dubose MD PAIN OFFICE [address] [place] [address] 09/23/2015 10:05:00 09/26/2015 07:44:25 Peripheral nerve entrapment syndrome 70393603 G58.8 Abdominal wall pain 1620 77589 R10.31 73797 Isa Dubose MD PAIN OFFICE [address] [place] [address] 11/02/2015 14:44:56 11/03/2015 09:10:13 Peripheral nerve entrapment syndrome 46625500 G58.8 Abdominal wall pain 1620 77548 R10.31 44632 Isa Dubose MD PAIN OFFICE [address] [facility] [place] [address] 12/08/2015 15:02:23 12/19/2015 08:49:49 Peripheral nerve entrapment syndrome 63904296 G58.8 Abdominal wall pain 1620 99584 R10.31 Health Concerns Section Related Observation LastModified by Organization Detai ls LastModified Time None Recorded Concern Status LastModified by Organization Details LastModified Time None Recorded Advance Directives Directive None Recorded Payers Insurance Date Sequence Insurance Name Policy Number Policy Arriaza Covered Member ID Arriaza Member ID Guarantor Name 12/19/2015 1 [facility] [id number] [facility] [id number] [facility] 12/19/2015 2 [place] [facility] [id number] [facility] Notes Date Note Type Note Provider Name [...] appointment with gastroenterology. Isa Dubose MD [address] [facility] , [address], [place], [address], [place] - [employer] [facility] 09/29/2015 15:45:26 11/02/2015 text/html She is here for a trial of scar infiltration under ultrasound guidance. She states she has seen a gastro enterologist at [facility] and is waiting for investigations. Isa Dubose MD [address] [facility] , [address], [place], [address], [employer] - [employer] [facility] 11/05/2015 11:30:07 12/08/2015 text/html She is here for a follow up after a trial of scar infiltration under ultrasound guidance. She reports no pain benefit. She states she has seen a gastro enterologist at [facility] and is waiting for investigations. Isa Dubose MD [address] [facility] , [address], [place], [address], [employer] - [employer] [facility] 12/20/2015 15:40:08 OBGyn Episode No OBEpisode recorded.
== END 2025-02-05 14:10 | disposition home or self-care (01) ==
LOC: HO.LAB 14:09
PROVIDERS: PCP Nurse Practitioner Family; Visit Provider Advanced Practice Midwife
DX: N93.9 Abnormal uterine and vaginal bleeding, unspecified (principal)
CPT/HCPCS: 36415; 85027